=== PATIENT | female | born 1950 | race Caucasian/White ===

== ENCOUNTER 2016-12-25 15:20 | Inpatient (IN) | payer MEDICARE ==
[2016-12-25] MEDS ORDERED: ONDANSETRON HCL INJ/PF 4 MG/2 ML SDV IV ONE (15:53)
[2016-12-25] MEDS ORDERED: FAMOTIDINE INJ/PF 20 MG/2 ML SDV IV ONE (15:53)
[2016-12-25] MEDS ORDERED: NORMAL SALINE 1000 ML 1,000 ML IV PRN (15:53)
--- NOTE | 2016-12-25 15:54 | ER Document Report ---
ED Medical Screen (RME) - General Chief Complaint: High Blood Sugar Stated Complaint: DIABETES PROBLEMS Time Seen by Provider: 12/25/16 15:52 Mode of Arrival: Wheelchair Information source: Patient, Relative TRAVEL OUTSIDE OF THE [place] IN LAST 30 DAYS: No - HPI Patient complains to provider of: Nausea and vomiting, elevated blood sugars Notes: 12/25/16 15:54 Patient is a 66-year-old female with a history of diabetes who presents to the emergency room today complaining of nausea vomiting and diarrhea 2 days, she went to urgent care today and they noted her blood sugar to be elevated and also she had ketones in her urine so they sent her to the emergency department for evaluation - Related Data Allergies/Adverse Reactions: codeine Allergy (Verified 12/25/16 15:44) Past Medical History Renal/ Medical History: Denies: Hx Peritoneal Dialysis Physical Exam - Vital signs Vitals: Temp Pulse Resp BP Pulse Ox 98.9 F 100 18 157/86 H 93 12/25/16 15:40 12/25/16 15:40 12/25/16 15:40 12/25/16 15:40 12/25/16 15:40 Course - Vital Signs Vital signs: Temp Pulse Resp BP Pulse Ox 98.9 F 100 18 157/86 H 93 12/25/16 15:40 12/25/16 15:40 12/25/16 15:40 12/25/16 15:40 12/25/16 15:40
[2016-12-25 16:47] LABS: APPEARANCE,URINE CLOUDY; BILIRUBIN,URINE NEGATIVE (NEGATIVE); GLUCOSE, URINE NEGATIVE (NEGATIVE); KETONES,URINE NEGATIVE (NEGATIVE); LEUKOCYTE ESTERASE,URINE TRACE (NEGATIVE); NITRITE,URINE NEGATIVE (NEGATIVE); PROTEIN,URINE 100 mg/dL (NEGATIVE); URINE SPECIFIC GRAVITY 1.015
[2016-12-25 17:30] LABS: ABSOLUTE BASOPHILS # (AUTO) 0.1 10^3/uL (0.0-0.2); ABSOLUTE LYMPHOCYTES (AUTO) 1.3 10^3/uL (0.5-4.7); ABSOLUTE MONOCYTES (AUTO) 1.2 10^3/uL (0.1-1.4); ABSOLUTE NEUT (AUTO) 10.6 10^3/uL (1.7-8.2); BASOPHILS % (AUTO) 0.8 % (0-2); EOSINOPHILS % (AUTO) 0.1 % (0-6); HEMATOCRIT 38.5 % (36.0-47.0); HEMOGLOBIN 13.7 g/dL (12.0-15.5); HGB HCT DIFFERENCE 2.6; LYMPHOCYTES % (AUTO) 9.9 % (13-45); MEAN CORPUSCULAR HEMOGLOBIN 26.8 pg (27.0-33.4); MEAN CORPUSCULAR HGB CONC 35.6 g/dL (32.0-36.0); MEAN CORPUSCULAR VOLUME 75 fl (80-97); MONOCYTES % (AUTO) 9.3 % (3-13); RED BLOOD COUNT 5.12 10^6/uL (3.72-5.28); RED CELL DISTRIBUTION WIDTH 15.9 % (11.5-14.0); SEGMENTED NEUTROPHILS % (AUTO) 79.9 % (42-78); WHITE BLOOD COUNT 13.3 10^3/uL (4.0-10.5)
[2016-12-25 17:54] LABS: VENOUS BLOOD BASE EXCESS 1.2 mmol/L; VENOUS BLOOD HCO3 23.9 mmol/L (20-32); VENOUS BLOOD PCO2 32.4 mmHg (35-63); VENOUS BLOOD PH 7.49 (7.30-7.42)
[2016-12-25 17:56] LABS: ALANINE AMINOTRANSFERASE 51 U/L (9-52); ALBUMIN 4.6 g/dL (3.5-5.0); ALKALINE PHOSPHATASE 82 U/L (38-126); ANION GAP 18 (5-19); ASPARTATE AMINO TRANSFERASE 90 U/L (14-36); BILIRUBIN,DIRECT 0.3 mg/dL (0.0-0.4); BLOOD UREA NITROGEN 11 mg/dL (7-20); CALCIUM 9.6 mg/dL (8.4-10.2); CARBON DIOXIDE 21 mmol/L (22-30); CHLORIDE 80 mmol/L (98-107); CREATININE RESULT 0.55 mg/dL (0.52-1.25); GLUCOSE 124 mg/dL (75-110); LIPASE 21.3 U/L (23-300); TOTAL PROTEIN 7.4 g/dL (6.3-8.2)
[2016-12-25 18:04] LABS: SODIUM 118.7 mmol/L (137-145)
[2016-12-25] MEDS ORDERED: CEFTRIAXONE 1 GM/D5W RTU 1 GM/50 ML RTUPB IV ONE (18:23)
[2016-12-25] MEDS ORDERED: NORMAL SALINE 1000 ML 1,000 ML IV ONE (18:23)
--- NOTE | 2016-12-25 19:03 | ER Document Report ---
ED General - General Chief Complaint: High Blood Sugar Stated Complaint: DIABETES PROBLEMS Time Seen by Provider: 12/25/16 15:52 Mode of Arrival: Wheelchair Notes: Patient is a 66-year-old female with a past medical history of insulin- dependent type 2 diabetes, hypertension, who presents with 2 days of persistent nausea and vomiting as well as generalized fatigue. The patient is visiting from out of town. Nothing seems to improve or worsen her symptoms. She notes that she has been completely unable to tolerate oral intake for the past 48 hours. She has no history of similar symptoms in the past. She was seen at an urgent care today due to her ongoing symptoms and they referred her to the emergency department for further evaluation due to concerns of ketones in her urine. She denies any focal abdominal pain but does note some mild bilateral flank pain. She does note mild dysuria. She has not had any fever, chest pain , shortness of breath, headache, or altered mental status. TRAVEL OUTSIDE OF THE [place] IN LAST 30 DAYS: No - Related Data Allergies/Adverse Reactions: codeine Allergy (Verified 12/25/16 15:44) Home Medications: Current Home Medications Aspirin [Aspirin EC] 81 mg PO DAILY 12/26/16 [History] Cholecalciferol (Vitamin D3) [Vitamin D3 2000 unit Tablet] 2,000 unit PO DAILY 12/26/16 [History] Clonidine HCl 0.1 mg PO TID 12/26/16 [History] Cranberry Fruit Extract [Cranberry] 300 mg PO TID 12/26/16 [History] Cyanocobalamin (Vitamin B-12) [B-12] 1,000 mcg PO DAILY 12/26/16 [History] Escitalopram Oxalate [Lexapro 10 mg Tablet] 10 mg PO DAILY 12/26/16 [History] Insulin Glargine,Hum.rec.anlog [Lantus Insulin 100 Unit/1 ml 10 ml] 25 units [id number] 12/26/16 [History] Metformin HCl [Glucophage] 1,000 mg PO BID 12/26/16 [History] Naproxen Sodium 220 mg PO PRN PRN 12/26/16 [History] Omeprazole [Omeprazole] 20 mg DAILY 12/26/16 [History] Pregabalin [Lyrica 100 mg Capsule] 100 mg PO BID 12/26/16 [History] Ramipril [Altace 10 mg Capsule] mg PO BID 12/26/16 [History] Rosuvastatin Calcium [Crestor 10 mg Tablet] 10 mg PO WSUPPER 12/26/16 [History] Verapamil HCl 80 mg PO TID 12/26/16 [History] Zinc Gluconate [Zinc] 50 mg PO DAILY 12/26/16 [History] Past Medical History - General Information source: Patient, Relative - Social History Smoking Status: Never Smoker Chew tobacco use (# tins/day): No Frequency of alcohol use: None Drug Abuse: None Lives with: Family Family History: Reviewed & Not Pertinent Patient has suicidal ideation: No Patient has homicidal ideation: No - Past Medical History Cardiac Medical History: Reports: Hx Hypertension Neurological Medical History: Reports: Hx Seizures Endocrine Medical History: Reports: Hx Diabetes Mellitus Type 2 Renal/ Medical History: Denies: Hx Peritoneal Dialysis Past Surgical History: Reports: Hx Cholecystectomy, Hx Hysterectomy Review of Systems - Review of Systems Notes: Constitutional: Negative for fever. HENT: Negative for sore throat. Eyes: Negative for visual changes. Cardiovascular: Negative for chest pain. Respiratory: Negative for shortness of breath. Gastrointestinal: Positive for persistent vomiting Genitourinary: Positive for dysuria. Musculoskeletal: Negative for back pain. Skin: Negative for rash. Neurological: Negative for headaches, weakness or numbness. 10 point ROS negative except as marked above and in HPI. Physical Exam - Vital signs Vitals: Temp Pulse Resp BP Pulse Ox 98.9 F 100 18 157/86 H 93 12/25/16 15:40 12/25/16 15:40 12/25/16 15:40 12/25/16 15:40 12/25/16 15:40 Interpretation: Hypertensive, Tachycardic Notes: PHYSICAL EXAMINATION: GENERAL: Appears somewhat lethargic, uncomfortable but no acute distress HEAD: Atraumatic, normocephalic. EYES: Pupils equal round and reactive to light, extraocular movements intact, sclera anicteric, conjunctiva are normal. ENT: nares patent, oropharynx clear without exudates. Dry mucous membranes. NECK: Normal range of motion, supple without lymphadenopathy LUNGS: Breath sounds clear to auscultation bilaterally and equal. No wheezes rales or rhonchi. HEART: Regular tachycardia without murmurs ABDOMEN: Soft, nontender, normoactive bowel sounds. No guarding, no rebound. No masses appreciated. Mild bilateral CVA tenderness worse in the left EXTREMITIES: Normal range of motion, no pitting or edema. No cyanosis. NEUROLOGICAL: No focal neurological deficits. Moves all extremities spontaneously and on command. PSYCH: Normal mood, normal affect. SKIN: Warm, Dry, poor turgor, no rashes or lesions noted. Course - Re-evaluation Re-evalutation: 12/25/16 19:02 Patient presents with severe hyponatremia at 118 likely secondary to persistent vomiting as she is also hypochloremic and her urine is concentrated. Urinalysis also demonstrates findings consistent with an acute urinary tract infection which I suspect is the source of her persistent vomiting over the last 3 days. Given the degree of patient's hyponatremia she is at risk for seizures and has been placed on seizure precautions. The remainder of her laboratories are overall unremarkable with exception of a mild leukocytosis at 13. Urine culture and blood cultures have been obtained. Patient did originally received 1 L of IV fluids prior to my assessment. I do not wish to overcorrect too quickly so patient has now been placed on only maintenance fluids. I started ceftriaxone for treatment of the urinary tract infection. On lung examination patient is somewhat diminished at the bases bilaterally and is noted to be mildly hypoxemic at 93% on presentation. Will therefore also obtain a chest x-ray. Patient will require admission to the hospital for correction of her hyponatremia, treatment of her urinary tract infection with associated sepsis. 12/25/16 19:56 I have discussed this case with Dr. Steel who has accepted the patient for admission. - Vital Signs Vital signs: Temp Pulse Resp BP Pulse Ox 97.6 F 87 18 169/71 H 96 12/26/16 01:22 12/26/16 01:22 12/26/16 01:22 12/26/16 01:22 12/26/16 01:22 - Laboratory Result Diagrams: 12/25/16 17:10 12/26/16 00:55 Laboratory results interpreted by me: 12/25/16 12/25/16 12/25/16 15:52 16:07 16:07 WBC MCV MCH RDW Seg Neutrophils % Lymphocytes % Absolute Neutrophils VBG pH VBG pCO2 Sodium Chloride Carbon Dioxide Glucose POC Glucose 135 H Magnesium AST Lipase Urine Protein 100 H Urine Blood MODERATE H Urine Urobilinogen 2.0 H Ur Leukocyte Esterase TRACE H Urine Sodium 123 H 12/25/16 12/25/16 12/25/16 17:10 17:10 17:10 WBC 13.3 H MCV 75 L MCH 26.8 L RDW 15.9 H Seg Neutrophils % 79.9 H Lymphocytes % 9.9 L Absolute Neutrophils 10.6 H VBG pH 7.49 H VBG pCO2 32.4 L Sodium 118.7 L* Chloride 80 L Carbon Dioxide 21 L Glucose 124 H POC Glucose Magnesium AST 90 H Lipase 21.3 L Urine Protein Urine Blood Urine Urobilinogen Ur Leukocyte Esterase Urine Sodium 12/25/16 17:10 WBC MCV MCH RDW Seg Neutrophils % Lymphocytes % Absolute Neutrophils VBG pH VBG pCO2 Sodium Chloride Carbon Dioxide Glucose POC Glucose Magnesium 0.9 L* AST Lipase Urine Protein Urine Blood Urine Urobilinogen Ur Leukocyte Esterase Urine Sodium - Diagnostic Test Radiology reviewed: Image reviewed, Reports reviewed Radiology results interpreted by me: 12/25/16 19:57 Chest x-ray: No acute infiltrate or pneumothorax Discharge - Discharge Clinical Impression: Pyelonephritis, Hyponatremia, Persistent vomiting Sepsis Qualifiers: Sepsis type: sepsis due to unspecified organism Qualified Code(s): A41.9 - Sepsis, unspecified organism Condition: Fair Disposition: ADMITTED INPATIENT Admitting Provider: [facility] Admitted: [facility]
--- NOTE | 2016-12-25 19:38 | RADIOLOGY REPORT (SQ) ---
EXAM DESCRIPTION: CHEST SINGLE VIEW COMPLETED DATE/TIME: 12/25/2016 7:28 pm REASON FOR STUDY: sepsis COMPARISON: None. EXAM PARAMETERS: NUMBER OF VIEWS: One view. TECHNIQUE: Single frontal radiographic view of the chest acquired. RADIATION DOSE: NA LIMITATIONS: None. FINDINGS: LUNGS AND PLEURA: No opacities, masses or pneumothorax. No pleural effusion. MEDIASTINUM AND HILAR STRUCTURES: No masses. Contour normal. HEART AND VASCULAR STRUCTURES: Heart normal in size. Normal vasculature. BONES: No acute findings. HARDWARE: None in the chest. OTHER: No other significant finding. IMPRESSION: NO ACUTE RADIOGRAPHIC FINDING IN THE CHEST. TECHNICAL DOCUMENTATION: JOB ID: [id number]
[2016-12-25] MEDS ORDERED: ONDANSETRON HCL INJ/PF 4 MG/2 ML SDV IV PRN (19:46)
[2016-12-25] MEDS ORDERED: DEXTROSE 50%-WATER 25 GM/50 ML DISP.SYRIN IV PRN ×2 (19:46)
[2016-12-25] MEDS ORDERED: GLUCAGON,HUMAN RECOMB 1 MG INJ IM PRN (19:46)
[2016-12-25] MEDS ORDERED: DEXTROSE 40% GEL 15 GM TUBE PO PRN ×2 (19:46)
[2016-12-25] MEDS ORDERED: NORMAL SALINE 1000 ML 1,000 ML IV SCH (20:00)
[2016-12-25 20:50] LABS: BLOOD UREA NITROGEN 9 mg/dL (7-20); CALCIUM 8.7 mg/dL (8.4-10.2); CARBON DIOXIDE 21 mmol/L (22-30); CHLORIDE 82 mmol/L (98-107); CREATININE RESULT 0.46 mg/dL (0.52-1.25); GLUCOSE 102 mg/dL (75-110); POTASSIUM 3.5 mmol/L (3.6-5.0)
[2016-12-25 20:52] LABS: ANION GAP 15 (5-19)
[2016-12-25] MEDS ORDERED: MAGNESIUM SULFATE/D5W 1 GM/100 ML RTUPB IV ONE (20:53)
[2016-12-25 21:05] LABS: CREATINE KINASE 2380 U/L (30-135)
[2016-12-25 21:08] LABS: SODIUM 117.5 mmol/L (137-145)
[2016-12-25 21:10] LABS: TROPONIN I < 0.012 ng/mL
[2016-12-25] MEDS ORDERED: FUROSEMIDE INJ/PF 40 MG/4 ML SDV IV ONE (22:30)
[2016-12-25] MEDS: MAGNESIUM SULFATE/D5W 1 GM/100 ML RTUPB IV SCH ×3 (22:57→23:07)
[2016-12-25] MEDS: HEPARIN SOD (PORCINE) 5,000 UNIT/ML 1 ML SYRINGE SUBCUT SCH (23:04)
[2016-12-26 02:00] LABS: ANION GAP 18 (5-19); BLOOD UREA NITROGEN 8 mg/dL (7-20); CALCIUM 8.9 mg/dL (8.4-10.2); CARBON DIOXIDE 21 mmol/L (22-30); CHLORIDE 80 mmol/L (98-107); CREATININE RESULT 0.53 mg/dL (0.52-1.25); GLUCOSE 137 mg/dL (75-110); POTASSIUM 3.5 mmol/L (3.6-5.0)
[2016-12-26 02:10] LABS: CREATINE KINASE 2690 U/L (30-135)
[2016-12-26 02:17] LABS: TROPONIN I < 0.012 ng/mL
[2016-12-26 03:04] LABS: SODIUM 118.8 mmol/L (137-145)
[2016-12-26 04:56] LABS: ABSOLUTE BASOPHILS # (AUTO) 0.1 10^3/uL (0.0-0.2); ABSOLUTE LYMPHOCYTES (AUTO) 1.4 10^3/uL (0.5-4.7); ABSOLUTE MONOCYTES (AUTO) 1.3 10^3/uL (0.1-1.4); ABSOLUTE NEUT (AUTO) 8.9 10^3/uL (1.7-8.2); EOSINOPHILS % (AUTO) 0.2 % (0-6); HEMATOCRIT 37.6 % (36.0-47.0); HEMOGLOBIN 13.5 g/dL (12.0-15.5); HGB HCT DIFFERENCE 2.9; LYMPHOCYTES % (AUTO) 11.8 % (13-45); MEAN CORPUSCULAR HEMOGLOBIN 26.8 pg (27.0-33.4); MEAN CORPUSCULAR HGB CONC 35.8 g/dL (32.0-36.0); MEAN CORPUSCULAR VOLUME 75 fl (80-97); MONOCYTES % (AUTO) 11.2 % (3-13); RED BLOOD COUNT 5.02 10^6/uL (3.72-5.28); RED CELL DISTRIBUTION WIDTH 15.8 % (11.5-14.0); SEGMENTED NEUTROPHILS % (AUTO) 75.8 % (42-78); WHITE BLOOD COUNT 11.7 10^3/uL (4.0-10.5)
[2016-12-26 05:26] LABS: ANION GAP 17 (5-19); BLOOD UREA NITROGEN 8 mg/dL (7-20); CALCIUM 8.8 mg/dL (8.4-10.2); CARBON DIOXIDE 21 mmol/L (22-30); CHLORIDE 80 mmol/L (98-107); CREATININE RESULT 0.51 mg/dL (0.52-1.25); GLUCOSE 122 mg/dL (75-110); POTASSIUM 3.2 mmol/L (3.6-5.0)
[2016-12-26 05:38] LABS: SODIUM 117.7 mmol/L (137-145)
[2016-12-26] MEDS: HEPARIN SOD (PORCINE) 5,000 UNIT/ML 1 ML SYRINGE SUBCUT SCH ×3 (05:50→21:18)
[2016-12-26] MEDS ORDERED: FUROSEMIDE INJ/PF 40 MG/4 ML SDV IV ONE (06:15)
[2016-12-26] MEDS: ACETAMINOPHEN 325 MG TABLET PO PRN (06:38)
[2016-12-26] MEDS ORDERED: SODIUM CHLORIDE 1 GM TABLET PO ONE ×2 (06:49→09:30)
--- NOTE | 2016-12-26 07:46 | PDOC H&P ---
History of Present Illness Admission Date/PCP: 12/25/16 20:04 Patient complains of: Nausea and vomiting History of Present Illness: JYOTHI SUTHERLAND is a 66 year old female with a past medical history of diabetes and Charcot foot, hypertension and morbid obesity. Patient been her usual state of health until 3 days ago noted nausea and vomiting of gastric content, polyuria and polydipsia. Patient sought evaluation in urgent care and was noted to have ketones in the urine and is referred to the emergency room for evaluation. Where she is found to have profound hyponatremia and a urinary tract infection. She started on empiric antibiotics, IV fluids and referred to the hospitalist for admission. Patient denies chest pain or shortness of breath she admits to constant thirst and is driven to drink water all day long according to family members. Patient denies uncontrolled hyperglycemia or recent change in medications. Past Medical History Cardiac Medical History: Reports: Hypertension Neurological Medical History: Reports: Seizures Endocrine Medical History: Reports: Diabetes Mellitus Type 2, Obesity Musculoskeltal Medical History: Reports: Other - Charcot foot with ulcer Psychiatric Medical History: Reports: Depression Past Surgical History Past Surgical History: Reports: Cholecystectomy, Hysterectomy Social History Information Source: Patient, Relative, Emergency Med Personnel Lives with: Family Smoking Status: Never Smoker Frequency of Alcohol Use: None Hx Recreational Drug Use: No Drugs: None Hx Prescription Drug Abuse: No - Advance Directive Resuscitation Status: Full Code Family History Family History: DM, Hypertension Parental Family History Reviewed: Yes Children Family History Reviewed: Yes Sibling(s) Family History Reviewed.: Yes Medication/Allergy Home Medications: Aspirin [Aspirin EC] 81 mg PO DAILY 12/26/16 Cholecalciferol (Vitamin D3) [Vitamin D3 2000 unit Tablet] 2,000 unit PO DAILY 12/26/16 Clonidine HCl 0.1 mg PO TID 12/26/16 Cranberry Fruit Extract [Cranberry] 300 mg PO TID 12/26/16 Cyanocobalamin (Vitamin B-12) [B-12] 1,000 mcg PO DAILY 12/26/16 Escitalopram Oxalate [Lexapro 10 mg Tablet] 10 mg PO DAILY 12/26/16 Insulin Glargine,Hum.rec.anlog [Lantus Insulin 100 Unit/1 ml 10 ml] 25 units [id number] 12/26/16 Metformin HCl [Glucophage] 1,000 mg PO BID 12/26/16 Naproxen Sodium 220 mg PO PRN PRN 12/26/16 Omeprazole [Omeprazole] 20 mg DAILY 12/26/16 Pregabalin [Lyrica 100 mg Capsule] 100 mg PO BID 12/26/16 Ramipril [Altace 10 mg Capsule] 10 mg PO BID 12/26/16 Rosuvastatin Calcium [Crestor 10 mg Tablet] 10 mg PO WSUPPER 12/26/16 Verapamil HCl 80 mg PO TID 12/26/16 Zinc Gluconate [Zinc] 50 mg PO DAILY 12/26/16 Allergies/Adverse Reactions: codeine Allergy (Verified 12/25/16 15:44) Review of Systems Constitutional: PRESENT: as per HPI, fatigue, weakness, weight gain. ABSENT: fever(s) Eyes: ABSENT: visual disturbances Ears: ABSENT: hearing changes Cardiovascular: ABSENT: chest pain, dyspnea on exertion, edema, orthropnea, palpitations Respiratory: ABSENT: cough, hemoptysis Gastrointestinal: PRESENT: as per HPI, bloating, nausea, vomiting. ABSENT: coffee ground emesis, constipation, diarrhea Genitourinary: PRESENT: as per HPI, difficulty urinating Musculoskeletal: ABSENT: joint swelling Integumentary: ABSENT: rash, wounds Neurological: ABSENT: abnormal gait, abnormal speech, confusion, dizziness, focal weakness, syncope Psychiatric: ABSENT: anxiety, depression, homidical ideation, suicidal ideation Endocrine: ABSENT: cold intolerance, heat intolerance, polydipsia, polyuria Hematologic/Lymphatic: ABSENT: easy bleeding, easy bruising Physical Exam Vital Signs: Temp Pulse Resp BP Pulse Ox 97.7 F 84 17 156/74 H 93 12/26/16 03:00 12/26/16 03:00 12/26/16 03:00 12/26/16 03:00 12/26/16 03:00 Intake & Output 12/24/16 12/25/16 12/26/16 11:59 11:59 11:59 Intake Total 100 Output Total 1700 Balance -1600 Weight 105.3 kg General appearance: PRESENT: no acute distress, well-developed, well-nourished Head exam: PRESENT: atraumatic, normocephalic Eye exam: PRESENT: conjunctiva pink, EOMI, PERRLA. ABSENT: scleral icterus Ear exam: PRESENT: normal external ear exam Mouth exam: PRESENT: moist, tongue midline Neck exam: ABSENT: carotid bruit, JVD, lymphadenopathy, thyromegaly Respiratory exam: PRESENT: clear to auscultation grace. ABSENT: rales, rhonchi, wheezes Cardiovascular exam: PRESENT: RRR. ABSENT: diastolic murmur, rubs, systolic murmur Pulses: PRESENT: normal dorsalis pedis pul Vascular exam: PRESENT: normal capillary refill GI/Abdominal exam: PRESENT: normal bowel sounds, soft. ABSENT: distended, guarding, mass, organolmegaly, rebound, tenderness Rectal exam: PRESENT: deferred Extremities exam: PRESENT: full ROM. ABSENT: calf tenderness, clubbing, pedal edema Neurological exam: PRESENT: alert, awake, oriented to person, oriented to place , oriented to time, oriented to situation, CN II-XII grossly intact. ABSENT: motor sensory deficit Psychiatric exam: PRESENT: appropriate affect, normal mood. ABSENT: homicidal ideation, suicidal ideation Skin exam: PRESENT: dry, intact, warm. ABSENT: cyanosis, rash Results Laboratory Results: 12/26/16 04:40 12/26/16 04:40 12/25/16 12/25/16 12/26/16 20:22 20:22 00:55 WBC RBC Hgb Hct MCV MCH MCHC RDW Plt Count Seg Neutrophils % Lymphocytes % Monocytes % Eosinophils % Basophils % Absolute Neutrophils Absolute Lymphocytes Absolute Monocytes Absolute Eosinophils Absolute Basophils Sodium 117.5 L* 118.8 L* Potassium 3.5 L 3.5 L Chloride 82 L 80 L Carbon Dioxide 21 L 21 L Anion Gap 15 18 BUN 9 8 Creatinine 0.46 L 0.53 Est GFR ( Amer) > 60 > 60 Est GFR (Non-Af Amer) > 60 > 60 Glucose 102 137 H Serum Osmolality 239 L Calcium 8.7 8.9 Magnesium 12/26/16 12/26/16 12/26/16 04:40 04:40 04:40 WBC 11.7 H RBC 5.02 Hgb 13.5 Hct 37.6 MCV 75 L MCH 26.8 L MCHC 35.8 RDW 15.8 H Plt Count 399 Seg Neutrophils % 75.8 Lymphocytes % 11.8 L Monocytes % 11.2 Eosinophils % 0.2 Basophils % 1.0 Absolute Neutrophils 8.9 H Absolute Lymphocytes 1.4 Absolute Monocytes 1.3 Absolute Eosinophils 0.0 Absolute Basophils 0.1 Sodium 117.7 L* Potassium 3.2 L Chloride 80 L Carbon Dioxide 21 L Anion Gap 17 BUN 8 Creatinine 0.51 L Est GFR ( Amer) > 60 Est GFR (Non-Af Amer) > 60 Glucose 122 H Serum Osmolality Calcium 8.8 Magnesium 1.7 12/25/16 12/25/16 12/26/16 20:22 20:22 00:55 Creatine Kinase 2380 H 2690 H CK-MB (CK-2) 21.00 H Troponin I < 0.012 NT-Pro-B Natriuret Pep 12/26/16 12/26/16 12/26/16 00:55 00:55 00:55 Creatine Kinase Cancelled CK-MB (CK-2) 18.90 H Troponin I < 0.012 NT-Pro-B Natriuret Pep 197 Impressions: Chest X-Ray 12/25/16 19:01 IMPRESSION: NO ACUTE RADIOGRAPHIC FINDING IN THE CHEST. Assessment & Plan - Diagnosis (1) Hyponatremia Is this a current diagnosis for this admission?: Yes Plan: Hypotonic and hypervolemic likely multifactorial secondary to primary polydipsia , NSAIDs, PPI and SSRI. IMCU admission chemistry q. 4 hours, fluid restriction IV Lasix as needed. Education (2) Urinary tract infection Is this a current diagnosis for this admission?: Yes Plan: Empiric antibiotics follow-up CBC, blood and urine culture (3) Hypomagnesemia Is this a current diagnosis for this admission?: Yes Plan: Unclear cause repletion and reevaluation of chemistry (4) Rhabdomyolysis Is this a current diagnosis for this admission?: Yes Plan: Secondary to hyponatremia, consider bicarb, reevaluate total CK to verify improvement - Time Time Spent: 50 to 70 Minutes
[2016-12-26] MEDS: POTASSI CL 20 MEQ/50 ML RIDER 20 MEQ/50 ML RTUPB IV SCH ×4 (08:00→23:11)
[2016-12-26 08:41] LABS: ANION GAP 19 (5-19); BLOOD UREA NITROGEN 8 mg/dL (7-20); CALCIUM 9.2 mg/dL (8.4-10.2); CARBON DIOXIDE 22 mmol/L (22-30); CHLORIDE 78 mmol/L (98-107); CREATINE KINASE 1528 U/L (30-135); CREATININE RESULT 0.59 mg/dL (0.52-1.25); GLUCOSE 121 mg/dL (75-110); POTASSIUM 3.1 mmol/L (3.6-5.0)
[2016-12-26 08:50] LABS: SODIUM 119.3 mmol/L (137-145)
[2016-12-26 09:02] LABS: TROPONIN I < 0.012 ng/mL
--- NOTE | 2016-12-26 09:40 | EKG REPORT ---
SEVERITY:- NORMAL ECG - SINUS RHYTHM : Confirmed by: Cherise Medina 26-Dec-2016 09:39:11
[2016-12-26] MEDS: DOCUSATE SODIUM 100 MG CAPSULE PO SCH (09:49)
[2016-12-26] MEDS: ASPIRIN 81 MG TABLET, ENT COATED PO SCH (09:49)
[2016-12-26] MEDS: CEFTRIAXONE 1 GM/D5W RTU 1 GM/50 ML RTUPB IV SCH (09:50)
[2016-12-26] MEDS ORDERED: VERAPAMIL HCL 80 MG TABLET PO SCH (10:00)
[2016-12-26] MEDS ORDERED: RAMIPRIL 10 MG CAPSULE PO SCH (10:00)
[2016-12-26] MEDS ORDERED: PREGABALIN 100 MG CAPSULE PO SCH (10:00)
[2016-12-26] MEDS ORDERED: CLONIDINE HCL 0.1 MG TABLET PO SCH (10:00)
[2016-12-26] MEDS ORDERED: CALCIUM CARBONATE 500 MG TAB.CHEW PO ONE (11:00)
[2016-12-26] MEDS: CLONIDINE HCL 0.1 MG TABLET PO SCH ×2 (14:00→21:26)
[2016-12-26] MEDS: MAG HYDROX/AL HYDROX/SIMETH SUSP 30 ML UDCUP PO PRN ×2 (14:01→22:47)
[2016-12-26] MEDS: VERAPAMIL HCL 80 MG TABLET PO SCH ×2 (14:01→21:29)
[2016-12-26 14:10] LABS: ANION GAP 16 (5-19); BLOOD UREA NITROGEN 8 mg/dL (7-20); CALCIUM 9.2 mg/dL (8.4-10.2); CARBON DIOXIDE 22 mmol/L (22-30); CHLORIDE 81 mmol/L (98-107); CREATININE RESULT 0.56 mg/dL (0.52-1.25); GLUCOSE 142 mg/dL (75-110); MAGNESIUM 1.5 mg/dL (1.6-2.3); POTASSIUM 3.3 mmol/L (3.6-5.0)
[2016-12-26 14:14] LABS: SODIUM 119.4 mmol/L (137-145)
--- NOTE | 2016-12-26 15:28 | PDOC PROGRESS REPORT ---
Subjective Progress Note for:: 12/26/16 Subjective:: Pt is seen resting in bed with family present. Pt reports diffuse abdominal pain, described as "aching" that does not radiate, and most localized to the suprapubic area. She complains of dysuria. She denies flank pain, nausea, vomiting, urinary urgency and frequency. She does endorse feeling feverish, although an elevated temperature has not been documented. Pt's family members have numerous questions and concerns regarding specifics of lab values and plans to address her electrolytes. They do confirm that the patient is more fatigued and confused than per her baseline. All questions were answered and treatment plan was discussed in detail. Physical Exam Vital Signs: Temp Pulse Resp BP Pulse Ox 98.3 F 87 19 157/80 H 94 12/26/16 13:04 12/26/16 13:04 12/26/16 13:04 12/26/16 13:04 12/26/16 13:04 Intake & Output 12/25/16 12/26/16 12/27/16 06:59 06:59 06:59 Intake Total 800 118 Output Total 1700 Balance -900 118 Weight 105.3 kg General appearance: PRESENT: no acute distress, obese, well-developed, well- nourished Head exam: PRESENT: atraumatic, normocephalic Eye exam: PRESENT: conjunctiva pink, EOMI, PERRLA. ABSENT: scleral icterus Ear exam: PRESENT: normal external ear exam Mouth exam: PRESENT: moist, tongue midline Neck exam: ABSENT: carotid bruit, JVD, lymphadenopathy, thyromegaly Respiratory exam: PRESENT: clear to auscultation grace, symmetrical, unlabored. ABSENT: rales, rhonchi, wheezes Cardiovascular exam: PRESENT: RRR, +S1, +S2. ABSENT: diastolic murmur, rubs, systolic murmur Pulses: PRESENT: normal dorsalis pedis pul Vascular exam: PRESENT: normal capillary refill GI/Abdominal exam: PRESENT: normal bowel sounds, soft, tenderness - suprapubic tenderness w/ palpation. ABSENT: distended, guarding, mass, organolmegaly, rebound Rectal exam: PRESENT: deferred Extremities exam: PRESENT: full ROM. ABSENT: calf tenderness, clubbing, pedal edema Neurological exam: PRESENT: alert, awake, oriented to person, oriented to place , oriented to time, oriented to situation, CN II-XII grossly intact, other. ABSENT: motor sensory deficit Psychiatric exam: PRESENT: appropriate affect, normal mood. ABSENT: homicidal ideation, suicidal ideation Skin exam: PRESENT: dry, intact, warm. ABSENT: cyanosis, rash Results Laboratory Results: 12/26/16 04:40 12/26/16 13:22 12/25/16 12/25/16 12/26/16 20:22 20:22 00:55 WBC RBC Hgb Hct MCV MCH MCHC RDW Plt Count Seg Neutrophils % Lymphocytes % Monocytes % Eosinophils % Basophils % Absolute Neutrophils Absolute Lymphocytes Absolute Monocytes Absolute Eosinophils Absolute Basophils Sodium 117.5 L* 118.8 L* Potassium 3.5 L 3.5 L Chloride 82 L 80 L Carbon Dioxide 21 L 21 L Anion Gap 15 18 BUN 9 8 Creatinine 0.46 L 0.53 Est GFR ( Amer) > 60 > 60 Est GFR (Non-Af Amer) > 60 > 60 Glucose 102 137 H Serum Osmolality 239 L Calcium 8.7 8.9 Magnesium TSH 12/26/16 12/26/16 12/26/16 00:55 04:40 04:40 WBC 11.7 H RBC 5.02 Hgb 13.5 Hct 37.6 MCV 75 L MCH 26.8 L MCHC 35.8 RDW 15.8 H Plt Count 399 Seg Neutrophils % 75.8 Lymphocytes % 11.8 L Monocytes % 11.2 Eosinophils % 0.2 Basophils % 1.0 Absolute Neutrophils 8.9 H Absolute Lymphocytes 1.4 Absolute Monocytes 1.3 Absolute Eosinophils 0.0 Absolute Basophils 0.1 Sodium 117.7 L* Potassium 3.2 L Chloride 80 L Carbon Dioxide 21 L Anion Gap 17 BUN 8 Creatinine 0.51 L Est GFR ( Amer) > 60 Est GFR (Non-Af Amer) > 60 Glucose 122 H Serum Osmolality Calcium 8.8 Magnesium TSH 1.13 12/26/16 12/26/16 12/26/16 04:40 07:56 13:22 WBC RBC Hgb Hct MCV MCH MCHC RDW Plt Count Seg Neutrophils % Lymphocytes % Monocytes % Eosinophils % Basophils % Absolute Neutrophils Absolute Lymphocytes Absolute Monocytes Absolute Eosinophils Absolute Basophils Sodium 119.3 L* 119.4 L* Potassium 3.1 L 3.3 L Chloride 78 L 81 L Carbon Dioxide 22 22 Anion Gap 19 16 BUN 8 8 Creatinine 0.59 0.56 Est GFR ( Amer) > 60 > 60 Est GFR (Non-Af Amer) > 60 > 60 Glucose 121 H 142 H Serum Osmolality Calcium 9.2 9.2 Magnesium 1.7 1.5 L TSH 12/25/16 12/25/16 12/26/16 20:22 20:22 00:55 Creatine Kinase 2380 H 2690 H CK-MB (CK-2) 21.00 H Troponin I < 0.012 NT-Pro-B Natriuret Pep 12/26/16 12/26/16 12/26/16 00:55 00:55 00:55 Creatine Kinase Cancelled CK-MB (CK-2) 18.90 H Troponin I < 0.012 NT-Pro-B Natriuret Pep 197 12/26/16 12/26/16 07:56 07:56 Creatine Kinase 1528 H CK-MB (CK-2) 12.70 H Troponin I < 0.012 NT-Pro-B Natriuret Pep Impressions: Chest X-Ray 12/25/16 19:01 IMPRESSION: NO ACUTE RADIOGRAPHIC FINDING IN THE CHEST. Assessment & Plan - Diagnosis (1) Hyponatremia Is this a current diagnosis for this admission?: Yes Plan: Hypotonic and hypervolemic; likely multifactorial secondary to primary polydipsia, NSAIDs, PPI, and SSRI. Admitted to IMCU. 1- Seizure precautions 2- Fluid restricted to 1000 ml daily 3- Serial bmp (2) Hypomagnesemia Is this a current diagnosis for this admission?: Yes Plan: Replaced; will continue to monitor. (3) Rhabdomyolysis Is this a current diagnosis for this admission?: Yes Plan: Secondary to hyponatremia. Improving. Will continue to monitor. (4) Urinary tract infection Qualifiers: Urinary tract infection type: acute cystitis Hematuria presence: with hematuria Qualified Code(s): N30.01 - Acute cystitis with hematuria Is this a current diagnosis for this admission?: Yes Plan: Urine culture: Gram negative rods. Pt reports continued dysuria and suprapubic abdominal pain. 1- Continue Rocephin 2- Pyridium TID - Time Time Spent with patient: 35 or more minutes Medications reviewed and adjusted accordingly: Yes - Inpatient Certification Based on my medical assessment, after consideration of the patient's comorbidities, presenting symptoms, or acuity I expect that the services needed warrant INPATIENT care.: Yes I certify that my determination is in accordance with my understanding of Medicare's requirements for reasonable and necessary INPATIENT services [42 CFR 412.3e].: Yes Medical Necessity: Failure to Improve With Outpatient Therapy, Need Close Monitoring Due to Risk of Patient Decompensation, Need For IV Fluids, Need for IV Antibiotics
--- NOTE | 2016-12-26 15:38 | CONSULTATION REPORT E ---
Consultation Report NAME: JYOTHI SUTHERLAND : 1950 AGE: 66Y DATE: 12/26/2016 323 A TO: CARMELLA HOLLIS M.D. FROM: SEPIDEH GANDHI M.D. Requesting Physician REASON FOR CONSULTATION: Charcot feet with ulcers. HISTORY OF PRESENT ILLNESS: The patient is a 66-year-old white female new to this area originally from [place] who has a long history of polyarthropathy of the feet, Charcot feet, multiple previous operations on the feet but remarkably no toe amputations, history of foot orthotic on the left, and especially diabetic shoe on the right, who was admitted to the hospital for acute hyponatremia and hypervolemia and other electrolyte abnormalities. Surgery is consulted for evaluation and management of her feet. PAST MEDICAL AND SURGICAL HISTORY: All count be found in History and Physical document. REVIEW OF SYSTEMS: All count be found in History and Physical document. FAMILY HISTORY: All count be found in History and Physical document. PHYSICAL EXAMINATION: GENERAL: The patient is examined at [facility] 3rd floor. She is in no distress. EXTREMITIES: Exam focused on the lower extremities. She has palpable popliteal and dorsalis pedis pulses bilaterally. Both feet are mildly edematous but no acute erythema, foul smell, or open wounds. On the right side, all five toes are present. Several of the toe tips have some dry exfoliating skin but no acute wounds. These areas are at the tips of the toes. There is moderate deformity of the bone structure of the foot consistent with chronic subluxation and/or dislocation. Left foot worse than right in terms of arthropathy. Again, multiple toes with marked angulation and deformity but no acutely open wounds, cellulitis, etc. Several of the toe tips again have mild friction-like changes. LABORATORY PROFILE: Shows electrolyte abnormalities consistent with hyponatremia, hypokalemia. White blood cell count 11,700 with no significant left shift this morning. IMPRESSION: Chronic diabetic osteoarthropathy of the feet consistent with Charcot joints status post previous operations for toe and forefoot stabilization, all chronic; no evidence of acute ulcerations, wounds, infection, etc. RECOMMENDATIONS: 1. No indication for acute surgical intervention at this time. There is nothing to debride. 2. Suggest ongoing local wound care including leg elevation, protection of skin and pressure points; I have suggested using Allevyn dressings and an order has been written. 3. Patient has left foot custom-make orthotic and right diabetic shoe; once she is stable for ambulation, she can return to those support devices. 4. Reconsult surgery if needed. DICTATING PHYSICIAN: CARMELLA HOLLIS M.D. [id number] PHY#: [id number] ID: [id number] JOB#: [id number] ACCT: [id number] cc:CARMELLA HOLLIS M.D. >
[2016-12-26] MEDS ORDERED: MAGNESIUM SULFATE 4 GM/100 ML RTUPB IV ONE (16:00)
[2016-12-26 17:33] LABS: ANION GAP 14 (5-19); BLOOD UREA NITROGEN 9 mg/dL (7-20); CALCIUM 8.9 mg/dL (8.4-10.2); CARBON DIOXIDE 24 mmol/L (22-30); CHLORIDE 80 mmol/L (98-107); CREATININE RESULT 0.57 mg/dL (0.52-1.25); GLUCOSE 172 mg/dL (75-110); POTASSIUM 3.2 mmol/L (3.6-5.0)
[2016-12-26 17:41] LABS: SODIUM 118.4 mmol/L (137-145)
[2016-12-26 19:33] LABS: ANION GAP 16 (5-19); BLOOD UREA NITROGEN 9 mg/dL (7-20); CALCIUM 9.1 mg/dL (8.4-10.2); CARBON DIOXIDE 23 mmol/L (22-30); CHLORIDE 80 mmol/L (98-107); CREATININE RESULT 0.56 mg/dL (0.52-1.25); GLUCOSE 170 mg/dL (75-110); POTASSIUM 3.2 mmol/L (3.6-5.0)
[2016-12-26 19:47] LABS: MAGNESIUM 2.9 mg/dL (1.6-2.3)
[2016-12-26 19:49] LABS: SODIUM 119.3 mmol/L (137-145)
[2016-12-26] MEDS: PHENAZOPYRIDINE HCL 100 MG TABLET PO SCH (21:27)
[2016-12-26] MEDS: RAMIPRIL 10 MG CAPSULE PO SCH (21:28)
[2016-12-26] MEDS: PREGABALIN 100 MG CAPSULE PO SCH (21:28)
[2016-12-26 23:35] LABS: ANION GAP 14 (5-19); BLOOD UREA NITROGEN 8 mg/dL (7-20); CALCIUM 8.8 mg/dL (8.4-10.2); CARBON DIOXIDE 24 mmol/L (22-30); CHLORIDE 83 mmol/L (98-107); CREATININE RESULT 0.53 mg/dL (0.52-1.25); GLUCOSE 172 mg/dL (75-110); POTASSIUM 3.7 mmol/L (3.6-5.0); SODIUM 121.1 mmol/L (137-145)
[2016-12-27 03:44] LABS: BLOOD UREA NITROGEN 8 mg/dL (7-20); CALCIUM 8.6 mg/dL (8.4-10.2); CARBON DIOXIDE 26 mmol/L (22-30); CHLORIDE 85 mmol/L (98-107); CREATININE RESULT 0.52 mg/dL (0.52-1.25); GLUCOSE 160 mg/dL (75-110); POTASSIUM 3.6 mmol/L (3.6-5.0)
[2016-12-27 04:23] LABS: ANION GAP 12 (5-19); SODIUM 123.4 mmol/L (137-145)
[2016-12-27] MEDS: ACETAMINOPHEN 325 MG TABLET PO PRN ×2 (04:36→17:57)
[2016-12-27] MEDS: CLONIDINE HCL 0.1 MG TABLET PO SCH ×3 (06:17→21:52)
[2016-12-27] MEDS: PHENAZOPYRIDINE HCL 100 MG TABLET PO SCH ×3 (06:18→21:52)
[2016-12-27] MEDS: VERAPAMIL HCL 80 MG TABLET PO SCH ×3 (06:19→21:52)
[2016-12-27] MEDS: HEPARIN SOD (PORCINE) 5,000 UNIT/ML 1 ML SYRINGE SUBCUT SCH ×3 (06:19→21:51)
[2016-12-27 08:03] LABS: ANION GAP 15 (5-19); BLOOD UREA NITROGEN 8 mg/dL (7-20); CALCIUM 9.1 mg/dL (8.4-10.2); CARBON DIOXIDE 24 mmol/L (22-30); CHLORIDE 86 mmol/L (98-107); CREATINE KINASE 492 U/L (30-135); CREATININE RESULT 0.55 mg/dL (0.52-1.25); GLUCOSE 148 mg/dL (75-110); MAGNESIUM 2.1 mg/dL (1.6-2.3); POTASSIUM 3.7 mmol/L (3.6-5.0); SODIUM 125.4 mmol/L (137-145)
--- NOTE | 2016-12-27 08:38 | RADIOLOGY REPORT (SQ) ---
EXAM DESCRIPTION: HIP RIGHT AP/LATERAL COMPLETED DATE/TIME: 12/27/2016 8:25 am REASON FOR STUDY: pain s/p fall COMPARISON: None. NUMBER OF VIEWS: Two views. TECHNIQUE: AP and frog-leg view of the right hip. LIMITATIONS: None. FINDINGS: MINERALIZATION: Normal. RIGHT HIP: No fracture or dislocation. No worrisome bone lesions. OPPOSITE HIP: No fracture or dislocation. No worrisome bone lesions. SOFT TISSUES: No findings. OTHER: Arthritic changes lower lumbar spine If an occult fracture suspected clinically, consider followup imaging. IMPRESSION: No acute fracture identified of the right hip TECHNICAL DOCUMENTATION: JOB ID: [id number] [employer]- All Rights Reserved
[2016-12-27] MEDS: CEFTRIAXONE 1 GM/D5W RTU 1 GM/50 ML RTUPB IV SCH (11:00)
[2016-12-27] MEDS: ASPIRIN 81 MG TABLET, ENT COATED PO SCH (11:00)
[2016-12-27] MEDS: DOCUSATE SODIUM 100 MG CAPSULE PO SCH (11:01)
[2016-12-27] MEDS: PREGABALIN 100 MG CAPSULE PO SCH ×2 (11:02→21:51)
[2016-12-27] MEDS: RAMIPRIL 10 MG CAPSULE PO SCH ×2 (11:06→21:52)
--- NOTE | 2016-12-27 11:51 | PDOC PROGRESS REPORT ---
Subjective Progress Note for:: 12/27/16 Subjective:: Pt is seen resting in bed with family present. Pt reports continued diffuse abdominal pain, described as "aching" that does not radiate, and most localized to the suprapubic area. She does state the pain is improved from yesterday. She did develop urinary retention overnight and had a melton placed. Family members very concerned that this may be a reflection of kidney failure. All questions and concerns addressed and reassured. She denies flank pain, nausea, vomiting, urinary urgency and frequency. Pt's family members again have numerous questions and concerns regarding specifics of lab values and plans to address her electrolytes. They do confirm that the patient remains more confused than her baseline. All questions were answered and treatment plan was discussed in detail. Physical Exam Vital Signs: Temp Pulse Resp BP Pulse Ox 98.3 F 86 16 151/67 H 95 12/27/16 07:13 12/27/16 08:00 12/27/16 08:00 12/27/16 07:13 12/27/16 08:00 Intake & Output 12/26/16 12/27/16 12/28/16 06:59 06:59 06:59 Intake Total 800 1438 Output Total 1700 2000 Balance -900 -562 Weight 105.3 kg 110 kg General appearance: PRESENT: no acute distress, obese, well-developed, well- nourished Head exam: PRESENT: atraumatic, normocephalic Eye exam: PRESENT: conjunctiva pink, EOMI, PERRLA. ABSENT: scleral icterus Ear exam: PRESENT: normal external ear exam Mouth exam: PRESENT: moist, tongue midline Neck exam: ABSENT: carotid bruit, JVD, lymphadenopathy, thyromegaly Respiratory exam: PRESENT: clear to auscultation grace, symmetrical, unlabored. ABSENT: rales, rhonchi, tachypnea, wheezes Cardiovascular exam: PRESENT: RRR, +S1, +S2. ABSENT: diastolic murmur, rubs, systolic murmur Pulses: PRESENT: normal dorsalis pedis pul Vascular exam: PRESENT: normal capillary refill GI/Abdominal exam: PRESENT: normal bowel sounds, soft, tenderness - mild, diffuse suprapubic tenderness; not worsened with palpation. ABSENT: distended, guarding, mass, organolmegaly, rebound Rectal exam: PRESENT: deferred Extremities exam: PRESENT: full ROM. ABSENT: calf tenderness, clubbing, pedal edema Neurological exam: PRESENT: alert, awake, oriented to person, oriented to place , CN II-XII grossly intact, other - Slow mentation; pleasantly confused. ABSENT : oriented to time, oriented to situation, motor sensory deficit Psychiatric exam: PRESENT: appropriate affect, normal mood. ABSENT: homicidal ideation, suicidal ideation Skin exam: PRESENT: dry, intact, warm. ABSENT: cyanosis, rash Results Laboratory Results: 12/26/16 04:40 12/27/16 07:30 12/26/16 12/26/16 12/26/16 13:22 17:03 19:03 Sodium 119.4 L* 118.4 L* 119.3 L* Potassium 3.3 L 3.2 L 3.2 L Chloride 81 L 80 L 80 L Carbon Dioxide 22 24 23 Anion Gap 16 14 16 BUN 8 9 9 Creatinine 0.56 0.57 0.56 Est GFR ( Amer) > 60 > 60 > 60 Est GFR (Non-Af Amer) > 60 > 60 > 60 Glucose 142 H 172 H 170 H Calcium 9.2 8.9 9.1 Magnesium 1.5 L 2.9 H D 12/26/16 12/27/16 12/27/16 22:58 03:10 07:30 Sodium 121.1 L 123.4 L 125.4 L Potassium 3.7 3.6 3.7 Chloride 83 L 85 L 86 L Carbon Dioxide 24 26 24 Anion Gap 14 12 15 BUN 8 8 8 Creatinine 0.53 0.52 0.55 Est GFR ( Amer) > 60 > 60 > 60 Est GFR (Non-Af Amer) > 60 > 60 > 60 Glucose 172 H 160 H 148 H Calcium 8.8 8.6 9.1 Magnesium 2.1 12/25/16 12/25/16 12/26/16 20:22 20:22 00:55 Creatine Kinase 2380 H 2690 H CK-MB (CK-2) 21.00 H Troponin I < 0.012 NT-Pro-B Natriuret Pep 12/26/16 12/26/16 12/26/16 00:55 00:55 00:55 Creatine Kinase Cancelled CK-MB (CK-2) 18.90 H Troponin I < 0.012 NT-Pro-B Natriuret Pep 197 12/26/16 12/26/16 12/27/16 07:56 07:56 07:30 Creatine Kinase 1528 H 492 H CK-MB (CK-2) 12.70 H Troponin I < 0.012 NT-Pro-B Natriuret Pep Impressions: Chest X-Ray 12/25/16 19:01 IMPRESSION: NO ACUTE RADIOGRAPHIC FINDING IN THE CHEST. Hip/Pelvis X-Ray 12/27/16 00:00 IMPRESSION: No acute fracture identified of the right hip Assessment & Plan - Diagnosis (1) Hyponatremia Is this a current diagnosis for this admission?: Yes Plan: Hypotonic and hypervolemic; likely multifactorial secondary to primary polydipsia, NSAIDs, PPI, and SSRI. Admitted to IMCU. Sodium trending up. 1- Seizure precautions 2- Fluid restricted to 1000 ml daily 3- Serial bmp (2) Urinary tract infection Qualifiers: Urinary tract infection type: acute cystitis Hematuria presence: with hematuria Qualified Code(s): N30.01 - Acute cystitis with hematuria Is this a current diagnosis for this admission?: Yes Plan: Urine culture: E. coli, resistant to Trim/Sulfa only. Pt reports continued suprapubic abdominal pain; leukocytes trending down and pt is afebrile. 1- Continue Rocephin 2- Pyridium TID (3) Rhabdomyolysis Qualifiers: Rhabdomyolysis type: non-traumatic Qualified Code(s): M62.82 - Rhabdomyolysis Is this a current diagnosis for this admission?: Yes Plan: Secondary to hyponatremia. Improving. Will continue to monitor. (4) Hypomagnesemia Is this a current diagnosis for this admission?: Yes Plan: Replete; will continue to monitor. (5) Hypokalemia Is this a current diagnosis for this admission?: Yes Plan: Replete. - Time Time Spent with patient: 35 or more minutes Medications reviewed and adjusted accordingly: Yes - Inpatient Certification Based on my medical assessment, after consideration of the patient's comorbidities, presenting symptoms, or acuity I expect that the services needed warrant INPATIENT care.: Yes I certify that my determination is in accordance with my understanding of Medicare's requirements for reasonable and necessary INPATIENT services [42 CFR 412.3e].: Yes Medical Necessity: Failure to Improve With Outpatient Therapy
[2016-12-27 12:39] LABS: ANION GAP 14 (5-19); BLOOD UREA NITROGEN 8 mg/dL (7-20); CARBON DIOXIDE 26 mmol/L (22-30); CHLORIDE 86 mmol/L (98-107); CREATININE RESULT 0.61 mg/dL (0.52-1.25); GLUCOSE 157 mg/dL (75-110); POTASSIUM 3.5 mmol/L (3.6-5.0); SODIUM 125.5 mmol/L (137-145)
[2016-12-27] MEDS ORDERED: LIDOCAINE 5% (700 MG) TRANSDERMAL ADH..PATCH TP SCH (13:00)
[2016-12-27 16:31] LABS: ANION GAP 12 (5-19); BLOOD UREA NITROGEN 9 mg/dL (7-20); CALCIUM 9.4 mg/dL (8.4-10.2); CARBON DIOXIDE 25 mmol/L (22-30); CHLORIDE 87 mmol/L (98-107); CREATININE RESULT 0.54 mg/dL (0.52-1.25); GLUCOSE 218 mg/dL (75-110); POTASSIUM 3.4 mmol/L (3.6-5.0); SODIUM 123.8 mmol/L (137-145)
[2016-12-27] MEDS: INSULIN LISPRO 100 UNIT/ML 3 ML VIAL SUBCUT PRN ×2 (17:57→22:09)
[2016-12-27] MEDS: MAG HYDROX/AL HYDROX/SIMETH SUSP 30 ML UDCUP PO PRN (17:59)
[2016-12-27] MEDS ORDERED: LIDOCAINE 5% (700 MG) TRANSDERMAL ADH..PATCH TP ONE (18:00)
[2016-12-27 19:26] LABS: ANION GAP 11 (5-19); BLOOD UREA NITROGEN 10 mg/dL (7-20); CALCIUM 9.2 mg/dL (8.4-10.2); CARBON DIOXIDE 26 mmol/L (22-30); CHLORIDE 87 mmol/L (98-107); CREATININE RESULT 0.56 mg/dL (0.52-1.25); GLUCOSE 206 mg/dL (75-110); POTASSIUM 3.5 mmol/L (3.6-5.0); SODIUM 123.6 mmol/L (137-145)
[2016-12-27 23:18] LABS: ANION GAP 11 (5-19); BLOOD UREA NITROGEN 9 mg/dL (7-20); CALCIUM 9.3 mg/dL (8.4-10.2); CARBON DIOXIDE 26 mmol/L (22-30); CHLORIDE 88 mmol/L (98-107); CREATININE RESULT 0.54 mg/dL (0.52-1.25); GLUCOSE 169 mg/dL (75-110); POTASSIUM 3.6 mmol/L (3.6-5.0); SODIUM 125.2 mmol/L (137-145)
[2016-12-28] MEDS: CLONIDINE HCL 0.1 MG TABLET PO SCH ×3 (05:03→22:25)
[2016-12-28] MEDS: VERAPAMIL HCL 80 MG TABLET PO SCH ×3 (05:04→22:25)
[2016-12-28] MEDS: HEPARIN SOD (PORCINE) 5,000 UNIT/ML 1 ML SYRINGE SUBCUT SCH ×3 (05:05→22:25)
[2016-12-28] MEDS: PHENAZOPYRIDINE HCL 100 MG TABLET PO SCH ×3 (05:05→22:25)
[2016-12-28] MEDS: INSULIN LISPRO 100 UNIT/ML 3 ML VIAL SUBCUT PRN ×4 (08:06→22:36)
[2016-12-28] MEDS: ASPIRIN 81 MG TABLET, ENT COATED PO SCH (10:58)
[2016-12-28] MEDS: CEFTRIAXONE 1 GM/D5W RTU 1 GM/50 ML RTUPB IV SCH (10:58)
[2016-12-28] MEDS: POTASSIUM CHLORIDE 10 MEQ TABLET.SA PO SCH (10:58)
[2016-12-28] MEDS: DOCUSATE SODIUM 100 MG CAPSULE PO SCH (10:58)
[2016-12-28] MEDS: RAMIPRIL 10 MG CAPSULE PO SCH ×2 (10:59→22:25)
[2016-12-28] MEDS: PREGABALIN 100 MG CAPSULE PO SCH ×2 (10:59→22:25)
[2016-12-28 11:25] LABS: ANION GAP 13 (5-19); BLOOD UREA NITROGEN 11 mg/dL (7-20); CALCIUM 9.8 mg/dL (8.4-10.2); CARBON DIOXIDE 26 mmol/L (22-30); CHLORIDE 89 mmol/L (98-107); CREATININE RESULT 0.57 mg/dL (0.52-1.25); GLUCOSE 220 mg/dL (75-110); POTASSIUM 3.6 mmol/L (3.6-5.0); SODIUM 127.5 mmol/L (137-145)
[2016-12-28] MEDS: IPRATROPIUM/ALBUTEROL 0.5-2.5 MG/3 ML AMPUL NEB PRN ×2 (12:32→21:03)
[2016-12-28] MEDS ORDERED: LIDOCAINE 5% (700 MG) TRANSDERMAL ADH..PATCH TP SCH (13:00)
[2016-12-28] MEDS ORDERED: NAPROXEN SODIUM 220 MG PO PRN (14:01)
--- NOTE | 2016-12-28 14:31 | PDOC PROGRESS REPORT ---
Subjective Progress Note for:: 12/28/16 Subjective:: This is a follow-up visit for hyponatremia.. The patient states that she feels better but not quite herself. Her daughter and son-in-law are in the room and they have a list of questions that they have provided me. We did discuss at length the patient's ability to use Prilosec, insulin both short and long-acting , electrolytic normal ranges, solid food, liquid/fluid restriction, naproxen, and PT OT. Each of these questions was answered. Physical Exam Vital Signs: Temp Pulse Resp BP Pulse Ox 98.0 F 71 20 142/68 H 93 12/28/16 11:35 12/28/16 11:35 12/28/16 11:35 12/28/16 11:35 12/28/16 11:35 Intake & Output 12/27/16 12/28/16 12/29/16 06:59 06:59 06:59 Intake Total 1438 1463 474 Output Total 2000 790 350 Balance -562 673 124 Weight 110 kg 109 kg GENERAL: This is a well-developed well-nourished obese white female resting in bed currently in no acute distress. HEART: Regular rate and rhythm. No murmurs, rubs or gallops. LUNGS: Clear to auscultation bilaterally with equal rise and fall of the chest. ABDOMEN: Soft, obese, nontender, nondistended with normoactive bowel sounds EXTREMETIES: No clubbing, cyanosis or edema. 2+ peripheral pulses bilaterally. NEURO: Awake, alert. Cranial nerves II through XII are grossly intact. Results Laboratory Results: 12/26/16 04:40 12/28/16 10:27 12/27/16 12/27/16 12/27/16 15:55 19:00 22:55 Sodium 123.8 L 123.6 L 125.2 L Potassium 3.4 L 3.5 L 3.6 Chloride 87 L 87 L 88 L Carbon Dioxide 25 26 26 Anion Gap 12 11 11 BUN 9 10 9 Creatinine 0.54 0.56 0.54 Est GFR ( Amer) > 60 > 60 > 60 Est GFR (Non-Af Amer) > 60 > 60 > 60 Glucose 218 H 206 H 169 H Calcium 9.4 9.2 9.3 12/28/16 10:27 Sodium 127.5 L Potassium 3.6 Chloride 89 L Carbon Dioxide 26 Anion Gap 13 BUN 11 Creatinine 0.57 Est GFR ( Amer) > 60 Est GFR (Non-Af Amer) > 60 Glucose 220 H Calcium 9.8 12/26/16 17:45 Nasophary (Mrsa Only) MRSA Culture - Final NO MRSA RECOVERED 12/25/16 12/25/16 12/26/16 20:22 20:22 00:55 Creatine Kinase 2380 H 2690 H CK-MB (CK-2) 21.00 H Troponin I < 0.012 NT-Pro-B Natriuret Pep 12/26/16 12/26/16 12/26/16 00:55 00:55 00:55 Creatine Kinase Cancelled CK-MB (CK-2) 18.90 H Troponin I < 0.012 NT-Pro-B Natriuret Pep 197 12/26/16 12/26/16 12/27/16 07:56 07:56 07:30 Creatine Kinase 1528 H 492 H CK-MB (CK-2) 12.70 H Troponin I < 0.012 NT-Pro-B Natriuret Pep Impressions: Chest X-Ray 12/25/16 19:01 IMPRESSION: NO ACUTE RADIOGRAPHIC FINDING IN THE CHEST. Hip/Pelvis X-Ray 12/27/16 00:00 IMPRESSION: No acute fracture identified of the right hip Assessment & Plan - Diagnosis (1) Hyponatremia Is this a current diagnosis for this admission?: Yes Plan: Likely from polydipsia. The patient refills a 32 ounce mug filled with ice multiple times a day. She is currently fluid restricted to 1000 mL a day. I will also add sodium tablets. I will also liberalize her diet. Sodium is currently 125.5. If it remains in this range or better tomorrow I do not see why the patient cannot be discharged home from this perspective. (2) Hypokalemia Is this a current diagnosis for this admission?: Yes Plan: Replaced and resolved. (3) Hypomagnesemia Is this a current diagnosis for this admission?: Yes Plan: Replaced and resolved. (4) Rhabdomyolysis Qualifiers: Rhabdomyolysis type: non-traumatic Qualified Code(s): M62.82 - Rhabdomyolysis Is this a current diagnosis for this admission?: Yes Plan: Improved. (5) Urinary tract infection Qualifiers: Urinary tract infection type: acute cystitis Hematuria presence: with hematuria Qualified Code(s): N30.01 - Acute cystitis with hematuria Is this a current diagnosis for this admission?: Yes Plan: Continue Rocephin. Because this is occurring in an elderly patient I do consider this to be a complicated UTI and duration of treatment should be 7 days. (6) Falls Plan: The patient has had multiple falls as an outpatient. She has not been seen by her primary care physician in [place]. She is being followed by physical therapy. She her hip x-ray was negative. The patient was also seen for her Charcot foot by the general surgeon who recommended wraps. We will need to consult discharge planning for home needs while the patient is out of state. The patient should continue to use her orthotics. The patient was able to walk with a rolling walker. (7) Diabetes mellitus Plan: Continue sliding scale insulin. - Time Time Spent with patient: 35 or more minutes
[2016-12-28] MEDS: LIDOCAINE 5% (700 MG) TRANSDERMAL ADH..PATCH TP SCH (18:03)
[2016-12-28] MEDS: SODIUM CHLORIDE 1 GM TABLET PO SCH (18:03)
[2016-12-28] MEDS: MINERAL OIL/PETROLATUM,WHITE CREAM 114 GM TP PRN (18:09)
[2016-12-28] MEDS: NAPROXEN 250 MG TABLET PO PRN (22:25)
[2016-12-28 22:35] LABS: ANION GAP 14 (5-19); BLOOD UREA NITROGEN 13 mg/dL (7-20); CALCIUM 10.2 mg/dL (8.4-10.2); CARBON DIOXIDE 27 mmol/L (22-30); CHLORIDE 87 mmol/L (98-107); GLUCOSE 261 mg/dL (75-110); POTASSIUM 3.7 mmol/L (3.6-5.0); SODIUM 127.5 mmol/L (137-145)
[2016-12-29 05:12] LABS: HEMATOCRIT 37.8 % (36.0-47.0); HEMOGLOBIN 13.1 g/dL (12.0-15.5); HGB HCT DIFFERENCE 1.5; MEAN CORPUSCULAR HEMOGLOBIN 26.8 pg (27.0-33.4); MEAN CORPUSCULAR HGB CONC 34.8 g/dL (32.0-36.0); MEAN CORPUSCULAR VOLUME 77 fl (80-97); RED BLOOD COUNT 4.91 10^6/uL (3.72-5.28); RED CELL DISTRIBUTION WIDTH 16.3 % (11.5-14.0); WHITE BLOOD COUNT 7.9 10^3/uL (4.0-10.5)
[2016-12-29] MEDS: HEPARIN SOD (PORCINE) 5,000 UNIT/ML 1 ML SYRINGE SUBCUT SCH ×3 (06:23→21:09)
[2016-12-29] MEDS: PHENAZOPYRIDINE HCL 100 MG TABLET PO SCH ×3 (06:24→21:10)
[2016-12-29] MEDS: CLONIDINE HCL 0.1 MG TABLET PO SCH ×3 (06:24→21:11)
[2016-12-29] MEDS: VERAPAMIL HCL 80 MG TABLET PO SCH ×3 (06:24→21:10)
[2016-12-29] MEDS ORDERED: INSULIN GLARGINE,HUM.REC.ANLOG 1,000 UNIT/10 ML UNIT SUBCUT SCH (08:00)
[2016-12-29] MEDS: INSULIN LISPRO 100 UNIT/ML 3 ML VIAL SUBCUT PRN ×4 (08:28→22:21)
[2016-12-29] MEDS: ASPIRIN 81 MG TABLET, ENT COATED PO SCH (10:21)
[2016-12-29] MEDS: DOCUSATE SODIUM 100 MG CAPSULE PO SCH (10:21)
[2016-12-29] MEDS: LANSOPRAZOLE 15 MG TAB.RAP.DR PO SCH (10:21)
[2016-12-29] MEDS: SODIUM CHLORIDE 1 GM TABLET PO SCH ×2 (10:21→17:15)
[2016-12-29] MEDS: POTASSIUM CHLORIDE 10 MEQ TABLET.SA PO SCH (10:21)
[2016-12-29] MEDS: RAMIPRIL 10 MG CAPSULE PO SCH ×2 (10:22→21:10)
[2016-12-29] MEDS: PREGABALIN 100 MG CAPSULE PO SCH ×2 (10:22→21:10)
[2016-12-29] MEDS: CEFTRIAXONE 1 GM/D5W RTU 1 GM/50 ML RTUPB IV SCH (10:22)
[2016-12-29] MEDS: MINERAL OIL/PETROLATUM,WHITE CREAM 114 GM TP PRN (10:40)
[2016-12-29 10:58] LABS: ANION GAP 14 (5-19); BLOOD UREA NITROGEN 11 mg/dL (7-20); CALCIUM 9.8 mg/dL (8.4-10.2); CARBON DIOXIDE 25 mmol/L (22-30); CHLORIDE 91 mmol/L (98-107); GLUCOSE 312 mg/dL (75-110); POTASSIUM 3.8 mmol/L (3.6-5.0)
[2016-12-29] MEDS: NAPROXEN 250 MG TABLET PO PRN (11:44)
--- NOTE | 2016-12-29 15:02 | RADIOLOGY REPORT (SQ) ---
EXAM DESCRIPTION: KNEE BILATERAL 1-2 VIEWS COMPLETED DATE/TIME: 12/29/2016 2:52 pm REASON FOR STUDY: falls COMPARISON: None. NUMBER OF VIEWS: Two views. TECHNIQUE: AP and lateral radiographic images acquired of the right and left knee. LIMITATIONS: None. FINDINGS: MINERALIZATION: Normal. BONES: No acute fracture or dislocation. Joint space narrowing with small osteophytes. Irregular co ntour of the posterior patella, worse in the right knee, possibly due to chronic chondromalacia. No worrisome bone lesions. JOINT: Faint chondrocalcinosis. No effusion. SOFT TISSUES: No soft tissue swelling. No radio-opaque foreign body. OTHER: No other significant finding. IMPRESSION: CHRONIC DEGENERATIVE CHANGES DESCRIBED. NO ACUTE FINDINGS. TECHNICAL DOCUMENTATION: JOB ID: [id number] [employer])- All Rights Reserved
[2016-12-29] MEDS: ACETAMINOPHEN 325 MG TABLET PO PRN (16:25)
[2016-12-29] MEDS: IPRATROPIUM/ALBUTEROL 0.5-2.5 MG/3 ML AMPUL NEB PRN (16:29)
--- NOTE | 2016-12-29 17:47 | PDOC PROGRESS REPORT ---
Subjective Progress Note for:: 12/29/16 Subjective:: This is a follow-up visit for hyponatremia.. The patient feels better this evening. She is preparing to eat dinner. Overnight she had to in and out cath. Bladder scan this morning only showed 150 cc of urine Physical Exam Vital Signs: Temp Pulse Resp BP Pulse Ox 98.3 F 76 18 146/66 H 93 12/29/16 11:17 12/29/16 14:00 12/29/16 11:17 12/29/16 11:17 12/29/16 11:17 Intake & Output 12/28/16 12/29/16 12/30/16 06:59 06:59 06:59 Intake Total 1463 1001 723 Output Total 790 1575 Balance 673 -574 723 Weight 109 kg 109.2 kg GENERAL: This is a well-developed well-nourished obese white female resting in bed currently in no acute distress. She seems brighter and happier this morning. She is preparing to eat dinner. HEART: Regular rate and rhythm. No murmurs, rubs or gallops. LUNGS: Clear to auscultation bilaterally with equal rise and fall of the chest. ABDOMEN: Soft, obese, nontender, nondistended with normoactive bowel sounds EXTREMETIES: No clubbing, cyanosis or edema. 2+ peripheral pulses bilaterally. NEURO: Awake, alert. Cranial nerves II through XII are grossly intact. More conversational today. Results Laboratory Results: 12/29/16 04:58 12/29/16 10:22 12/28/16 12/29/16 12/29/16 21:52 04:58 10:22 WBC 7.9 RBC 4.91 Hgb 13.1 Hct 37.8 MCV 77 L MCH 26.8 L MCHC 34.8 RDW 16.3 H Plt Count 364 Sodium 127.5 L 130.0 L Potassium 3.7 3.8 Chloride 87 L 91 L Carbon Dioxide 27 25 Anion Gap 14 14 BUN 13 11 Creatinine 0.70 0.60 Est GFR ( Amer) > 60 > 60 Est GFR (Non-Af Amer) > 60 > 60 Glucose 261 H 312 H Calcium 10.2 9.8 12/25/16 12/25/16 12/26/16 20:22 20:22 00:55 Creatine Kinase 2380 H 2690 H CK-MB (CK-2) 21.00 H Troponin I < 0.012 NT-Pro-B Natriuret Pep 12/26/16 12/26/16 12/26/16 00:55 00:55 00:55 Creatine Kinase Cancelled CK-MB (CK-2) 18.90 H Troponin I < 0.012 NT-Pro-B Natriuret Pep 197 12/26/16 12/26/16 12/27/16 07:56 07:56 07:30 Creatine Kinase 1528 H 492 H CK-MB (CK-2) 12.70 H Troponin I < 0.012 NT-Pro-B Natriuret Pep Impressions: Chest X-Ray 12/25/16 19:01 IMPRESSION: NO ACUTE RADIOGRAPHIC FINDING IN THE CHEST. Hip/Pelvis X-Ray 12/27/16 00:00 IMPRESSION: No acute fracture identified of the right hip Knee X-Ray 12/29/16 00:00 IMPRESSION: CHRONIC DEGENERATIVE CHANGES DESCRIBED. NO ACUTE FINDINGS. Assessment & Plan - Diagnosis (1) Hyponatremia Is this a current diagnosis for this admission?: Yes Plan: Likely from polydipsia. The patient refills a 32 ounce mug filled with ice multiple times a day. She is currently fluid restricted to 1000 mL a day. I will also add sodium tablets. I will also liberalize her diet. Sodium is currently 130. Hold off on any further labs tomorrow. (2) Hypokalemia Is this a current diagnosis for this admission?: Yes Plan: Replaced and resolved. (3) Hypomagnesemia Is this a current diagnosis for this admission?: Yes Plan: Replaced and resolved. (4) Rhabdomyolysis Qualifiers: Rhabdomyolysis type: non-traumatic Qualified Code(s): M62.82 - Rhabdomyolysis Is this a current diagnosis for this admission?: Yes Plan: Improved. (5) Urinary tract infection Qualifiers: Urinary tract infection type: acute cystitis Hematuria presence: with hematuria Qualified Code(s): N30.01 - Acute cystitis with hematuria Is this a current diagnosis for this admission?: Yes Plan: Continue Rocephin. Because this is occurring in an elderly patient I do consider this to be a complicated UTI and duration of treatment should be 7 days. (6) Falls Plan: The patient has had multiple falls as an outpatient. She has not been seen by her primary care physician in [place]. She is being followed by physical therapy. She her hip x-ray was negative. The patient was also seen for her Charcot foot by the general surgeon who recommended wraps. Patient was seen by physical therapy today. [facility] is being recommended and discharge planning is already making arrangements to move in this direction. At this time patient is stable and able to be downgraded. (7) Diabetes mellitus Plan: Continue sliding scale insulin. Lantus was restarted this morning. We will let her finish out the day with the current regimen before deciding to make any changes. - Time Time Spent with patient: 15-24 minutes Anticipated discharge: SNF Within: within 72 hours
[2016-12-29] MEDS: LIDOCAINE 5% (700 MG) TRANSDERMAL ADH..PATCH TP SCH (18:45)
[2016-12-29] MEDS: POLYETHYLENE GLYCOL 3350 POWDER 17 GM/1 PACKET PO PRN (21:10)
[2016-12-29 22:27] LABS: ANION GAP 12 (5-19); BLOOD UREA NITROGEN 13 mg/dL (7-20); CALCIUM 9.5 mg/dL (8.4-10.2); CARBON DIOXIDE 26 mmol/L (22-30); CHLORIDE 91 mmol/L (98-107); CREATININE RESULT 0.73 mg/dL (0.52-1.25); GLUCOSE 262 mg/dL (75-110); POTASSIUM 4.3 mmol/L (3.6-5.0); SODIUM 128.8 mmol/L (137-145)
[2016-12-30] MEDS: CLONIDINE HCL 0.1 MG TABLET PO SCH ×3 (05:26→21:52)
[2016-12-30] MEDS: HEPARIN SOD (PORCINE) 5,000 UNIT/ML 1 ML SYRINGE SUBCUT SCH ×3 (05:26→21:52)
[2016-12-30] MEDS: VERAPAMIL HCL 80 MG TABLET PO SCH ×3 (05:26→21:52)
[2016-12-30] MEDS: PHENAZOPYRIDINE HCL 100 MG TABLET PO SCH ×3 (05:26→21:52)
[2016-12-30] MEDS: INSULIN LISPRO 100 UNIT/ML 3 ML VIAL SUBCUT PRN ×3 (08:02→21:52)
[2016-12-30] MEDS: INSULIN GLARGINE,HUM.REC.ANLOG 300 UNIT/3 ML INSULN.PEN SUBCUT SCH (08:02)
[2016-12-30] MEDS: IPRATROPIUM/ALBUTEROL 0.5-2.5 MG/3 ML AMPUL NEB PRN (09:44)
[2016-12-30] MEDS: LANSOPRAZOLE 15 MG TAB.RAP.DR PO SCH (10:33)
[2016-12-30] MEDS: POTASSIUM CHLORIDE 10 MEQ TABLET.SA PO SCH (10:33)
[2016-12-30] MEDS: CEFTRIAXONE 1 GM/D5W RTU 1 GM/50 ML RTUPB IV SCH (10:33)
[2016-12-30] MEDS: DOCUSATE SODIUM 100 MG CAPSULE PO SCH (10:33)
[2016-12-30] MEDS: ASPIRIN 81 MG TABLET, ENT COATED PO SCH (10:33)
[2016-12-30] MEDS: SODIUM CHLORIDE 1 GM TABLET PO SCH ×2 (10:33→16:53)
[2016-12-30] MEDS: PREGABALIN 100 MG CAPSULE PO SCH ×2 (10:33→21:52)
[2016-12-30] MEDS: RAMIPRIL 10 MG CAPSULE PO SCH ×2 (10:34→21:52)
[2016-12-30] MEDS: MINERAL OIL/PETROLATUM,WHITE CREAM 114 GM TP PRN (10:34)
[2016-12-30] MEDS: POLYETHYLENE GLYCOL 3350 POWDER 17 GM/1 PACKET PO PRN (10:34)
[2016-12-30 11:46] LABS: ANION GAP 14 (5-19); BLOOD UREA NITROGEN 11 mg/dL (7-20); CALCIUM 9.9 mg/dL (8.4-10.2); CARBON DIOXIDE 26 mmol/L (22-30); CHLORIDE 95 mmol/L (98-107); CREATININE RESULT 0.54 mg/dL (0.52-1.25); GLUCOSE 272 mg/dL (75-110); POTASSIUM 4.1 mmol/L (3.6-5.0); SODIUM 134.8 mmol/L (137-145)
--- NOTE | 2016-12-30 16:03 | PDOC PROGRESS REPORT ---
Subjective Progress Note for:: 12/30/16 Subjective:: This is a follow-up visit for hyponatremia. The patient feels good this afternoon. No acute events overnight Physical Exam Vital Signs: Temp Pulse Resp BP Pulse Ox 98.3 F 81 18 163/72 H 91 L 12/30/16 11:53 12/30/16 11:53 12/30/16 11:53 12/30/16 11:53 12/30/16 11:53 Intake & Output 12/29/16 12/30/16 12/31/16 06:59 06:59 06:59 Intake Total 1001 1508 Output Total 1575 2300 Balance -574 -792 Weight 109.2 kg 110.6 kg GENERAL: This is a well-developed well-nourished obese white female resting in bed currently in no acute distress. She seems brighter and happier this morning. HEART: Regular rate and rhythm. No murmurs, rubs or gallops. LUNGS: Clear to auscultation bilaterally with equal rise and fall of the chest. ABDOMEN: Soft, obese, nontender, nondistended with normoactive bowel sounds EXTREMETIES: No clubbing, cyanosis or edema. 2+ peripheral pulses bilaterally. NEURO: Awake, alert. Cranial nerves II through XII are grossly intact. conversational today. Results Laboratory Results: 12/29/16 04:58 12/30/16 11:14 12/29/16 12/30/16 21:55 11:14 Sodium 128.8 L 134.8 L Potassium 4.3 4.1 Chloride 91 L 95 L Carbon Dioxide 26 26 Anion Gap 12 14 BUN 13 11 Creatinine 0.73 0.54 Est GFR ( Amer) > 60 > 60 Est GFR (Non-Af Amer) > 60 > 60 Glucose 262 H 272 H Calcium 9.5 9.9 12/25/16 12/25/16 12/26/16 20:22 20:22 00:55 Creatine Kinase 2380 H 2690 H CK-MB (CK-2) 21.00 H Troponin I < 0.012 NT-Pro-B Natriuret Pep 12/26/16 12/26/16 12/26/16 00:55 00:55 00:55 Creatine Kinase Cancelled CK-MB (CK-2) 18.90 H Troponin I < 0.012 NT-Pro-B Natriuret Pep 197 12/26/16 12/26/16 12/27/16 07:56 07:56 07:30 Creatine Kinase 1528 H 492 H CK-MB (CK-2) 12.70 H Troponin I < 0.012 NT-Pro-B Natriuret Pep Impressions: Chest X-Ray 12/25/16 19:01 IMPRESSION: NO ACUTE RADIOGRAPHIC FINDING IN THE CHEST. Hip/Pelvis X-Ray 12/27/16 00:00 IMPRESSION: No acute fracture identified of the right hip Knee X-Ray 12/29/16 00:00 IMPRESSION: CHRONIC DEGENERATIVE CHANGES DESCRIBED. NO ACUTE FINDINGS. Assessment & Plan - Diagnosis (1) Hyponatremia Is this a current diagnosis for this admission?: Yes Plan: Likely from polydipsia. The patient refills a 32 ounce mug filled with ice multiple times a day. She is currently fluid restricted to 1000 mL a day. Continue sodium tablets. Continue broad diet. Sodium is currently 134. (2) Hypokalemia Is this a current diagnosis for this admission?: Yes Plan: Replaced and resolved. (3) Hypomagnesemia Is this a current diagnosis for this admission?: Yes Plan: Replaced and resolved. (4) Rhabdomyolysis Qualifiers: Rhabdomyolysis type: non-traumatic Qualified Code(s): M62.82 - Rhabdomyolysis Is this a current diagnosis for this admission?: Yes Plan: Improved. (5) Urinary tract infection Qualifiers: Urinary tract infection type: acute cystitis Hematuria presence: with hematuria Qualified Code(s): N30.01 - Acute cystitis with hematuria Is this a current diagnosis for this admission?: Yes Plan: Continue Rocephin. Because this is occurring in an elderly patient I do consider this to be a complicated UTI and duration of treatment should be 7 days. (6) Falls Plan: The patient has had multiple falls as an outpatient. She has not been seen by her primary care physician in [place]. She is being followed by physical therapy. She her hip x-ray was negative. The patient was also seen for her Charcot foot by the general surgeon who recommended wraps. Patient was seen by physical therapy today. SNF is being recommended and discharge planning is already making arrangements to move in this direction. (7) Diabetes mellitus Plan: Continue sliding scale insulin. Lantus was restarted. The patient's family wants her to be on twice daily dosing. I have agree for their comfort, but I will change this if becomes totally unnecessary - Time Time Spent with patient: 25-34 minutes - Inpatient Certification Medical Necessity: Need Close Monitoring Due to Risk of Patient Decompensation
[2016-12-30] MEDS: LIDOCAINE 5% (700 MG) TRANSDERMAL ADH..PATCH TP SCH (16:53)
[2016-12-30] MEDS ORDERED: INSULIN GLARGINE,HUM.REC.ANLOG 1,000 UNIT/10 ML UNIT SUBCUT SCH (18:00)
[2016-12-30] MEDS ORDERED: SODIUM CHLORIDE 5% OPH SOLN 15 ML OU PRN (19:36)
[2016-12-30] MEDS: NAPROXEN 250 MG TABLET PO PRN (23:24)
[2016-12-31 05:33] LABS: ABSOLUTE BASOPHILS # (AUTO) 0.1 10^3/uL (0.0-0.2); ABSOLUTE EOSINOPHILS # (AUTO) 0.3 10^3/uL (0.0-0.6); ABSOLUTE LYMPHOCYTES (AUTO) 1.2 10^3/uL (0.5-4.7); ABSOLUTE MONOCYTES (AUTO) 0.7 10^3/uL (0.1-1.4); ABSOLUTE NEUT (AUTO) 5.7 10^3/uL (1.7-8.2); BASOPHILS % (AUTO) 1.4 % (0-2); EOSINOPHILS % (AUTO) 4.2 % (0-6); HEMATOCRIT 36.5 % (36.0-47.0); HEMOGLOBIN 12.6 g/dL (12.0-15.5); HGB HCT DIFFERENCE 1.3; LYMPHOCYTES % (AUTO) 15.2 % (13-45); MEAN CORPUSCULAR HEMOGLOBIN 27.1 pg (27.0-33.4); MEAN CORPUSCULAR HGB CONC 34.4 g/dL (32.0-36.0); MEAN CORPUSCULAR VOLUME 79 fl (80-97); MONOCYTES % (AUTO) 8.5 % (3-13); RED BLOOD COUNT 4.64 10^6/uL (3.72-5.28); RED CELL DISTRIBUTION WIDTH 16.7 % (11.5-14.0); SEGMENTED NEUTROPHILS % (AUTO) 70.7 % (42-78); WHITE BLOOD COUNT 8.1 10^3/uL (4.0-10.5)
[2016-12-31 05:57] LABS: ANION GAP 12 (5-19); BLOOD UREA NITROGEN 13 mg/dL (7-20); CALCIUM 9.9 mg/dL (8.4-10.2); CARBON DIOXIDE 28 mmol/L (22-30); CHLORIDE 94 mmol/L (98-107); CREATININE RESULT 0.63 mg/dL (0.52-1.25); GLUCOSE 186 mg/dL (75-110); MAGNESIUM 1.5 mg/dL (1.6-2.3); SODIUM 133.6 mmol/L (137-145)
[2016-12-31 06:06] LABS: POTASSIUM 5.1 mmol/L (3.6-5.0)
[2016-12-31] MEDS: VERAPAMIL HCL 80 MG TABLET PO SCH ×3 (06:18→22:37)
[2016-12-31] MEDS: CLONIDINE HCL 0.1 MG TABLET PO SCH ×3 (06:18→22:37)
[2016-12-31] MEDS: HEPARIN SOD (PORCINE) 5,000 UNIT/ML 1 ML SYRINGE SUBCUT SCH ×3 (06:18→22:37)
[2016-12-31] MEDS: PHENAZOPYRIDINE HCL 100 MG TABLET PO SCH ×3 (06:18→22:37)
[2016-12-31] MEDS: PREGABALIN 100 MG CAPSULE PO SCH ×2 (09:48→22:37)
[2016-12-31] MEDS: CEFTRIAXONE 1 GM/D5W RTU 1 GM/50 ML RTUPB IV SCH (09:48)
[2016-12-31] MEDS: DOCUSATE SODIUM 100 MG CAPSULE PO SCH (09:48)
[2016-12-31] MEDS: LANSOPRAZOLE 15 MG TAB.RAP.DR PO SCH (09:48)
[2016-12-31] MEDS: POTASSIUM CHLORIDE 10 MEQ TABLET.SA PO SCH (09:48)
[2016-12-31] MEDS: INSULIN GLARGINE,HUM.REC.ANLOG 300 UNIT/3 ML INSULN.PEN SUBCUT SCH ×2 (09:48→18:10)
[2016-12-31] MEDS: ASPIRIN 81 MG TABLET, ENT COATED PO SCH (09:48)
[2016-12-31] MEDS: SODIUM CHLORIDE 1 GM TABLET PO SCH ×2 (09:48→18:10)
[2016-12-31] MEDS: RAMIPRIL 10 MG CAPSULE PO SCH ×2 (09:48→22:34)
[2016-12-31] MEDS ORDERED: MAGNESIUM SULFATE/D5W 1 GM/100 ML RTUPB IV ONE (12:00)
--- NOTE | 2016-12-31 14:20 | PDOC PROGRESS REPORT ---
Subjective Progress Note for:: 12/31/16 Subjective:: This is a follow-up visit for hyponatremia. The patient feels good this afternoon. No acute events overnight Physical Exam Vital Signs: Temp Pulse Resp BP Pulse Ox 98.2 F 74 15 147/76 H 94 12/30/16 23:42 12/31/16 09:31 12/31/16 09:31 12/30/16 23:42 12/31/16 09:31 Intake & Output 12/30/16 12/31/16 01/01/17 06:59 06:59 06:59 Intake Total 1508 1240 Output Total 2300 1100 Balance -792 140 Weight 110.6 kg 112.2 kg GENERAL: This is a well-developed well-nourished obese white female resting in bed currently in no acute distress. She seems brighter and happier this morning. She set herself up in bed and started preparing to eat her lunch, club sandwich and fruit bowl. HEART: Regular rate and rhythm. No murmurs, rubs or gallops. LUNGS: Clear to auscultation bilaterally with equal rise and fall of the chest. ABDOMEN: Soft, obese, nontender, nondistended with normoactive bowel sounds EXTREMETIES: No clubbing, cyanosis or edema. 2+ peripheral pulses bilaterally. NEURO: Awake, alert. Cranial nerves II through XII are grossly intact. conversational today. Results Laboratory Results: 12/31/16 04:11 12/31/16 04:11 12/31/16 12/31/16 04:11 04:11 WBC 8.1 RBC 4.64 Hgb 12.6 Hct 36.5 MCV 79 L MCH 27.1 MCHC 34.4 RDW 16.7 H Plt Count 418 Seg Neutrophils % 70.7 Lymphocytes % 15.2 Monocytes % 8.5 Eosinophils % 4.2 Basophils % 1.4 Absolute Neutrophils 5.7 Absolute Lymphocytes 1.2 Absolute Monocytes 0.7 Absolute Eosinophils 0.3 Absolute Basophils 0.1 Sodium 133.6 L Potassium 5.1 H D Chloride 94 L Carbon Dioxide 28 Anion Gap 12 BUN 13 Creatinine 0.63 Est GFR ( Amer) > 60 Est GFR (Non-Af Amer) > 60 Glucose 186 H Calcium 9.9 Magnesium 1.5 L 12/25/16 12/25/16 12/26/16 20:22 20:22 00:55 Creatine Kinase 2380 H 2690 H CK-MB (CK-2) 21.00 H Troponin I < 0.012 NT-Pro-B Natriuret Pep 12/26/16 12/26/16 12/26/16 00:55 00:55 00:55 Creatine Kinase Cancelled CK-MB (CK-2) 18.90 H Troponin I < 0.012 NT-Pro-B Natriuret Pep 197 12/26/16 12/26/16 12/27/16 07:56 07:56 07:30 Creatine Kinase 1528 H 492 H CK-MB (CK-2) 12.70 H Troponin I < 0.012 NT-Pro-B Natriuret Pep Impressions: Chest X-Ray 12/25/16 19:01 IMPRESSION: NO ACUTE RADIOGRAPHIC FINDING IN THE CHEST. Hip/Pelvis X-Ray 12/27/16 00:00 IMPRESSION: No acute fracture identified of the right hip Knee X-Ray 12/29/16 00:00 IMPRESSION: CHRONIC DEGENERATIVE CHANGES DESCRIBED. NO ACUTE FINDINGS. Assessment & Plan - Diagnosis (1) Hyponatremia Is this a current diagnosis for this admission?: Yes Plan: Likely from polydipsia. The patient refills a 32 ounce mug filled with ice multiple times a day. She is currently fluid restricted to 1000 mL a day. Continue sodium tablets. Continue broad diet. Sodium is near normal (2) Hypokalemia Is this a current diagnosis for this admission?: Yes Plan: Replaced and resolved. (3) Hypomagnesemia Is this a current diagnosis for this admission?: Yes Plan: Replaced (4) Rhabdomyolysis Qualifiers: Rhabdomyolysis type: non-traumatic Qualified Code(s): M62.82 - Rhabdomyolysis Is this a current diagnosis for this admission?: Yes Plan: Improved. (5) Urinary tract infection Qualifiers: Urinary tract infection type: acute cystitis Hematuria presence: with hematuria Qualified Code(s): N30.01 - Acute cystitis with hematuria Is this a current diagnosis for this admission?: Yes Plan: Continue Rocephin. Because this is occurring in an elderly patient I do consider this to be a complicated UTI and duration of treatment should be 7 days. (6) Falls Plan: The patient has had multiple falls as an outpatient. She has not been seen by her primary care physician in [place]. She is being followed by physical therapy. She her hip x-ray was negative. The patient was also seen for her Charcot foot by the general surgeon who recommended wraps. Patient was seen by physical therapy today. SNF is being recommended and discharge planning is already making arrangements to move in this direction. (7) Diabetes mellitus Plan: Continue sliding scale insulin. Lantus was restarted. The patient's family wants her to be on twice daily dosing. I have agree for their comfort, but I will change this if becomes totally unnecessary - Time Time Spent with patient: 15-24 minutes
[2016-12-31] MEDS: INSULIN LISPRO 100 UNIT/ML 3 ML VIAL SUBCUT PRN ×2 (18:10→22:36)
[2016-12-31] MEDS: LIDOCAINE 5% (700 MG) TRANSDERMAL ADH..PATCH TP SCH (18:10)
[2016-12-31] MEDS: MAG HYDROX/AL HYDROX/SIMETH SUSP 30 ML UDCUP PO PRN (19:57)
[2016-12-31] MEDS: ACETAMINOPHEN 325 MG TABLET PO PRN (19:57)
[2017-01-01] MEDS: IPRATROPIUM/ALBUTEROL 0.5-2.5 MG/3 ML AMPUL NEB PRN ×2 (02:47→11:18)
[2017-01-01] MEDS: PHENAZOPYRIDINE HCL 100 MG TABLET PO SCH ×3 (06:05→23:02)
[2017-01-01] MEDS: NAPROXEN 250 MG TABLET PO PRN (06:05)
[2017-01-01] MEDS: HEPARIN SOD (PORCINE) 5,000 UNIT/ML 1 ML SYRINGE SUBCUT SCH ×3 (06:05→23:00)
[2017-01-01] MEDS: CLONIDINE HCL 0.1 MG TABLET PO SCH ×3 (06:05→23:01)
[2017-01-01] MEDS: VERAPAMIL HCL 80 MG TABLET PO SCH ×3 (06:05→23:02)
[2017-01-01] MEDS: INSULIN GLARGINE,HUM.REC.ANLOG 300 UNIT/3 ML INSULN.PEN SUBCUT SCH ×2 (08:18→17:31)
[2017-01-01] MEDS: INSULIN LISPRO 100 UNIT/ML 3 ML VIAL SUBCUT PRN ×3 (08:19→23:18)
[2017-01-01] MEDS: CEFTRIAXONE 1 GM/D5W RTU 1 GM/50 ML RTUPB IV SCH (11:26)
[2017-01-01] MEDS: ASPIRIN 81 MG TABLET, ENT COATED PO SCH (11:27)
[2017-01-01] MEDS: DOCUSATE SODIUM 100 MG CAPSULE PO SCH (11:27)
[2017-01-01] MEDS: PREGABALIN 100 MG CAPSULE PO SCH ×2 (11:27→23:01)
[2017-01-01] MEDS: POTASSIUM CHLORIDE 10 MEQ TABLET.SA PO SCH (11:27)
[2017-01-01] MEDS: LANSOPRAZOLE 15 MG TAB.RAP.DR PO SCH (11:27)
[2017-01-01] MEDS: RAMIPRIL 10 MG CAPSULE PO SCH ×2 (11:28→23:02)
[2017-01-01] MEDS: SODIUM CHLORIDE 1 GM TABLET PO SCH ×2 (11:28→17:31)
[2017-01-01] MEDS: POLYVINYL ALCOHOL 1.4% OPH SOLN 15 ML OU PRN (16:17)
[2017-01-01] MEDS: LIDOCAINE 5% (700 MG) TRANSDERMAL ADH..PATCH TP SCH (17:31)
[2017-01-02] MEDS: IPRATROPIUM/ALBUTEROL 0.5-2.5 MG/3 ML AMPUL NEB PRN ×2 (01:11→14:18)
[2017-01-02] MEDS: VERAPAMIL HCL 80 MG TABLET PO SCH ×3 (05:45→21:43)
[2017-01-02] MEDS: CLONIDINE HCL 0.1 MG TABLET PO SCH ×3 (05:45→21:43)
[2017-01-02] MEDS: PHENAZOPYRIDINE HCL 100 MG TABLET PO SCH ×3 (05:45→21:43)
[2017-01-02] MEDS: HEPARIN SOD (PORCINE) 5,000 UNIT/ML 1 ML SYRINGE SUBCUT SCH ×3 (05:45→21:43)
[2017-01-02] MEDS: INSULIN LISPRO 100 UNIT/ML 3 ML VIAL SUBCUT PRN ×4 (08:28→21:52)
[2017-01-02] MEDS: INSULIN GLARGINE,HUM.REC.ANLOG 300 UNIT/3 ML INSULN.PEN SUBCUT SCH ×2 (08:28→18:21)
[2017-01-02] MEDS: SODIUM CHLORIDE 1 GM TABLET PO SCH ×2 (09:38→18:21)
[2017-01-02] MEDS: ASPIRIN 81 MG TABLET, ENT COATED PO SCH (09:39)
[2017-01-02] MEDS: DOCUSATE SODIUM 100 MG CAPSULE PO SCH (09:39)
[2017-01-02] MEDS: PREGABALIN 100 MG CAPSULE PO SCH ×2 (09:39→21:43)
[2017-01-02] MEDS: RAMIPRIL 10 MG CAPSULE PO SCH ×2 (09:39→21:43)
[2017-01-02] MEDS: POTASSIUM CHLORIDE 10 MEQ TABLET.SA PO SCH (09:39)
[2017-01-02] MEDS: LANSOPRAZOLE 15 MG TAB.RAP.DR PO SCH (09:40)
--- NOTE | 2017-01-02 13:22 | PDOC PROGRESS REPORT ---
Subjective Progress Note for:: 01/01/17 Subjective:: No acute complaint today. No fever or chills, no chest pain or shortness of breath or palpitations. Still with slight urinary frequency, but markedly improved. Physical Exam Vital Signs: Temp Pulse Resp BP Pulse Ox 98.5 F 77 18 144/67 H 94 01/02/17 11:35 01/02/17 11:35 01/02/17 11:35 01/02/17 11:35 01/02/17 11:35 Intake & Output 01/01/17 01/02/17 01/03/17 07:59 06:59 06:59 Intake Total Output Total Balance Weight Exam: GENERAL: This is a well-developed well-nourished female currently in no acute distress. HEART: Regular rate and rhythm. No murmurs, rubs or gallops. LUNGS: Clear to auscultation bilaterally with equal rise and fall of the chest. ABDOMEN: Soft, obese, nontender, nondistended with normoactive bowel sounds EXTREMETIES: No clubbing, cyanosis or edema. 2+ peripheral pulses bilaterally. NEURO: Awake, alert. Cranial nerves II through XII are grossly intact. Results Laboratory Results: 12/31/16 04:11 12/31/16 04:11 12/25/16 12/25/16 12/26/16 20:22 20:22 00:55 Creatine Kinase 2380 H 2690 H CK-MB (CK-2) 21.00 H Troponin I < 0.012 NT-Pro-B Natriuret Pep 12/26/16 12/26/16 12/26/16 00:55 00:55 00:55 Creatine Kinase Cancelled CK-MB (CK-2) 18.90 H Troponin I < 0.012 NT-Pro-B Natriuret Pep 197 12/26/16 12/26/16 12/27/16 07:56 07:56 07:30 Creatine Kinase 1528 H 492 H CK-MB (CK-2) 12.70 H Troponin I < 0.012 NT-Pro-B Natriuret Pep Impressions: Chest X-Ray 12/25/16 19:01 IMPRESSION: NO ACUTE RADIOGRAPHIC FINDING IN THE CHEST. Hip/Pelvis X-Ray 12/27/16 00:00 IMPRESSION: No acute fracture identified of the right hip Knee X-Ray 12/29/16 00:00 IMPRESSION: CHRONIC DEGENERATIVE CHANGES DESCRIBED. NO ACUTE FINDINGS. Assessment & Plan - Diagnosis (1) Diabetes mellitus Plan: Continue Rocephin IV for now to complete 7 days course for complicated UTI. Continue PT/OT. Discharge planning with plans for [facility] facility with rehab due to weakness and recurrent falls. (3) Rhabdomyolysis Qualifiers: Rhabdomyolysis type: non-traumatic Qualified Code(s): M62.82 - Rhabdomyolysis Is this a current diagnosis for this admission?: Yes (4) Urinary tract infection Qualifiers: Urinary tract infection type: acute cystitis Hematuria presence: with hematuria Qualified Code(s): N30.01 - Acute cystitis with hematuria Is this a current diagnosis for this admission?: Yes
--- NOTE | 2017-01-02 13:49 | PDOC PROGRESS REPORT ---
Subjective Progress Note for:: 01/02/17 Subjective:: Doing okay. Complains of vaginal itching consistent with previous yeast infection after antibiotics use. Normal significant discharge. Would like a dose of Diflucan as that has helped in the past. No fever or chills, no nausea or vomiting,. Denies dysuria or polyuria, no urinary frequency at this time. Completed Rocephin course 7 days yesterday, 01/01/17. Physical Exam Vital Signs: Temp Pulse Resp BP Pulse Ox 98.5 F 77 18 144/67 H 94 01/02/17 11:35 01/02/17 11:35 01/02/17 11:35 01/02/17 11:35 01/02/17 11:35 Intake & Output 01/01/17 01/02/17 01/03/17 07:59 06:59 06:59 Intake Total Output Total Balance Weight Exam: GENERAL: This is a well-developed well-nourished female currently in no acute distress. HEART: Regular rate and rhythm. No murmurs, rubs or gallops. LUNGS: Clear to auscultation bilaterally with equal rise and fall of the chest. ABDOMEN: Soft, obese, nontender, nondistended with normoactive bowel sounds EXTREMETIES: No clubbing, cyanosis or edema. 2+ peripheral pulses bilaterally. NEURO: Awake, alert. Cranial nerves II through XII are grossly intact. Results Laboratory Results: 12/31/16 04:11 12/31/16 04:11 12/25/16 12/25/16 12/26/16 20:22 20:22 00:55 Creatine Kinase 2380 H 2690 H CK-MB (CK-2) 21.00 H Troponin I < 0.012 NT-Pro-B Natriuret Pep 12/26/16 12/26/16 12/26/16 00:55 00:55 00:55 Creatine Kinase Cancelled CK-MB (CK-2) 18.90 H Troponin I < 0.012 NT-Pro-B Natriuret Pep 197 12/26/16 12/26/16 12/27/16 07:56 07:56 07:30 Creatine Kinase 1528 H 492 H CK-MB (CK-2) 12.70 H Troponin I < 0.012 NT-Pro-B Natriuret Pep Impressions: Chest X-Ray 12/25/16 19:01 IMPRESSION: NO ACUTE RADIOGRAPHIC FINDING IN THE CHEST. Hip/Pelvis X-Ray 12/27/16 00:00 IMPRESSION: No acute fracture identified of the right hip Knee X-Ray 12/29/16 00:00 IMPRESSION: CHRONIC DEGENERATIVE CHANGES DESCRIBED. NO ACUTE FINDINGS. Assessment & Plan - Diagnosis (1) Vaginal candidiasis Is this a current diagnosis for this admission?: Yes Plan: Likely secondary to antibiotics used for UTI treatment. We will treat with Diflucan 150 mg p.o. 1. (2) Urinary tract infection Qualifiers: Urinary tract infection type: acute cystitis Hematuria presence: with hematuria Qualified Code(s): N30.01 - Acute cystitis with hematuria Is this a current diagnosis for this admission?: Yes Plan: Status post 7 days course of IV Rocephin for complicated UTI. Urine culture grew E. coli that was pansensitive except resistant to Bactrim. (3) Diabetes mellitus Plan: Continue Lantus, sliding scale insulin. (4) Falls Plan: The patient has had multiple falls as an outpatient. She was here from [place] to visit her daughter. She is being followed by physical therapy. She her hip x- ray was negative. Plan is for SNF with rehab and care management working on this. (5) Rhabdomyolysis Qualifiers: Rhabdomyolysis type: non-traumatic Qualified Code(s): M62.82 - Rhabdomyolysis Is this a current diagnosis for this admission?: Yes Plan: Improved. Last CK from 12/27/16 was about 400. We will follow-up in a.m. (6) Hyponatremia Is this a current diagnosis for this admission?: Yes Plan: Improved. Hyponatremia likely from polydipsia. The patient reported at home refilled a 32 ounce mug filled with ice multiple times a day. She is currently fluid restricted to 1000 mL a day. On sodium tablets. We will follow-up Chem- 7 in a.m.
[2017-01-02] MEDS ORDERED: FLUCONAZOLE 100 MG TABLET PO ONE (15:00)
[2017-01-02] MEDS: LIDOCAINE 5% (700 MG) TRANSDERMAL ADH..PATCH TP SCH (18:22)
[2017-01-02] MEDS: POLYETHYLENE GLYCOL 3350 POWDER 17 GM/1 PACKET PO PRN (21:43)
[2017-01-03 06:18] LABS: ABSOLUTE BASOPHILS # (AUTO) 0.1 10^3/uL (0.0-0.2); ABSOLUTE EOSINOPHILS # (AUTO) 0.3 10^3/uL (0.0-0.6); ABSOLUTE LYMPHOCYTES (AUTO) 1.1 10^3/uL (0.5-4.7); ABSOLUTE MONOCYTES (AUTO) 0.7 10^3/uL (0.1-1.4); ABSOLUTE NEUT (AUTO) 5.4 10^3/uL (1.7-8.2); BASOPHILS % (AUTO) 1.5 % (0-2); EOSINOPHILS % (AUTO) 3.3 % (0-6); HEMATOCRIT 37.3 % (36.0-47.0); HEMOGLOBIN 12.9 g/dL (12.0-15.5); HGB HCT DIFFERENCE 1.4; MEAN CORPUSCULAR HEMOGLOBIN 27.3 pg (27.0-33.4); MEAN CORPUSCULAR HGB CONC 34.5 g/dL (32.0-36.0); MEAN CORPUSCULAR VOLUME 79 fl (80-97); RED BLOOD COUNT 4.71 10^6/uL (3.72-5.28); RED CELL DISTRIBUTION WIDTH 16.9 % (11.5-14.0); SEGMENTED NEUTROPHILS % (AUTO) 71.2 % (42-78); WHITE BLOOD COUNT 7.6 10^3/uL (4.0-10.5)
[2017-01-03 06:30] LABS: ANION GAP 14 (5-19); BLOOD UREA NITROGEN 16 mg/dL (7-20); CALCIUM 9.6 mg/dL (8.4-10.2); CARBON DIOXIDE 25 mmol/L (22-30); CHLORIDE 93 mmol/L (98-107); CREATINE KINASE 43 U/L (30-135); CREATININE RESULT 0.61 mg/dL (0.52-1.25); GLUCOSE 223 mg/dL (75-110); SODIUM 132.1 mmol/L (137-145)
[2017-01-03] MEDS: CLONIDINE HCL 0.1 MG TABLET PO SCH ×3 (06:48→22:46)
[2017-01-03] MEDS: PHENAZOPYRIDINE HCL 100 MG TABLET PO SCH ×3 (06:48→22:46)
[2017-01-03] MEDS: HEPARIN SOD (PORCINE) 5,000 UNIT/ML 1 ML SYRINGE SUBCUT SCH ×3 (06:48→22:46)
[2017-01-03] MEDS: VERAPAMIL HCL 80 MG TABLET PO SCH ×3 (06:48→22:46)
[2017-01-03] MEDS: DOCUSATE SODIUM 100 MG CAPSULE PO SCH (09:06)
[2017-01-03] MEDS: LANSOPRAZOLE 15 MG TAB.RAP.DR PO SCH (09:06)
[2017-01-03] MEDS: ASPIRIN 81 MG TABLET, ENT COATED PO SCH (09:06)
[2017-01-03] MEDS: INSULIN LISPRO 100 UNIT/ML 3 ML VIAL SUBCUT PRN ×3 (09:07→22:57)
[2017-01-03] MEDS: SODIUM CHLORIDE 1 GM TABLET PO SCH ×2 (09:07→17:31)
[2017-01-03] MEDS: PREGABALIN 100 MG CAPSULE PO SCH ×2 (09:07→22:46)
[2017-01-03] MEDS: POTASSIUM CHLORIDE 10 MEQ TABLET.SA PO SCH (09:07)
[2017-01-03] MEDS: INSULIN GLARGINE,HUM.REC.ANLOG 300 UNIT/3 ML INSULN.PEN SUBCUT SCH ×2 (09:07→17:32)
[2017-01-03] MEDS: RAMIPRIL 10 MG CAPSULE PO SCH ×2 (09:07→22:46)
[2017-01-03] MEDS: MAG HYDROX/AL HYDROX/SIMETH SUSP 30 ML UDCUP PO PRN (13:59)
[2017-01-03] MEDS ORDERED: ONDANSETRON HCL INJ/PF 4 MG/2 ML SDV IV PRN (15:30)
[2017-01-03] MEDS: NYSTATIN TOPICAL POWDER 15 GM TP PRN (15:58)
[2017-01-03] MEDS: LIDOCAINE 5% (700 MG) TRANSDERMAL ADH..PATCH TP SCH (17:31)
--- NOTE | 2017-01-03 18:14 | PDOC PROGRESS REPORT ---
Subjective Progress Note for:: 01/03/17 Subjective:: Doing okay. Vaginal itching has resolved with treatment with Diflucan. However complain of itching at the fold of bilateral groin as well as redness. No fever or chills, no nausea or vomiting. Denies dysuria or polyuria, no urinary frequency at this time. Completed Rocephin course 7 days 01/01/17. Physical Exam Vital Signs: Temp Pulse Resp BP Pulse Ox 98.6 F 72 17 134/69 H 95 01/03/17 15:16 01/03/17 15:16 01/03/17 15:16 01/03/17 15:16 01/03/17 15:16 Intake & Output 01/02/17 01/03/17 01/04/17 06:59 06:59 06:59 Intake Total 1193 360 Output Total 2600 1000 Balance -1407 -640 Weight 110.2 kg Exam: GENERAL: This is a well-developed well-nourished female currently in no acute distress. HEART: Regular rate and rhythm. No murmurs, rubs or gallops. LUNGS: Clear to auscultation bilaterally with equal rise and fall of the chest. ABDOMEN: Soft, obese, nontender, nondistended with normoactive bowel sounds EXTREMETIES: No clubbing, cyanosis or edema. 2+ peripheral pulses bilaterally. : Area of redness on moist bilateral groin creases consistent with fungal infection. NEURO: Awake, alert. Cranial nerves II through XII are grossly intact. Results Laboratory Results: 01/03/17 04:47 01/03/17 04:47 01/03/17 01/03/17 04:47 04:47 WBC 7.6 RBC 4.71 Hgb 12.9 Hct 37.3 MCV 79 L MCH 27.3 MCHC 34.5 RDW 16.9 H Plt Count 405 Seg Neutrophils % 71.2 Lymphocytes % 15.0 Monocytes % 9.0 Eosinophils % 3.3 Basophils % 1.5 Absolute Neutrophils 5.4 Absolute Lymphocytes 1.1 Absolute Monocytes 0.7 Absolute Eosinophils 0.3 Absolute Basophils 0.1 Sodium 132.1 L Potassium 5.0 Chloride 93 L Carbon Dioxide 25 Anion Gap 14 BUN 16 Creatinine 0.61 Est GFR ( Amer) > 60 Est GFR (Non-Af Amer) > 60 Glucose 223 H Calcium 9.6 12/25/16 12/25/16 12/26/16 20:22 20:22 00:55 Creatine Kinase 2380 H 2690 H CK-MB (CK-2) 21.00 H Troponin I < 0.012 NT-Pro-B Natriuret Pep 12/26/16 12/26/16 12/26/16 00:55 00:55 00:55 Creatine Kinase Cancelled CK-MB (CK-2) 18.90 H Troponin I < 0.012 NT-Pro-B Natriuret Pep 197 12/26/16 12/26/16 12/27/16 07:56 07:56 07:30 Creatine Kinase 1528 H 492 H CK-MB (CK-2) 12.70 H Troponin I < 0.012 NT-Pro-B Natriuret Pep 01/03/17 04:47 Creatine Kinase 43 CK-MB (CK-2) Troponin I NT-Pro-B Natriuret Pep Impressions: Chest X-Ray 12/25/16 19:01 IMPRESSION: NO ACUTE RADIOGRAPHIC FINDING IN THE CHEST. Hip/Pelvis X-Ray 12/27/16 00:00 IMPRESSION: No acute fracture identified of the right hip Knee X-Ray 12/29/16 00:00 IMPRESSION: CHRONIC DEGENERATIVE CHANGES DESCRIBED. NO ACUTE FINDINGS. Assessment & Plan - Diagnosis (1) Vaginal candidiasis Is this a current diagnosis for this admission?: Yes Plan: likely secondary to antibiotics used for UTI treatment. Improved status post Diflucan 150 mg p.o. 1. We will treat skinfolds groins nystatin powder. Advised to keep area dry. (2) Urinary tract infection Qualifiers: Urinary tract infection type: acute cystitis Hematuria presence: with hematuria Qualified Code(s): N30.01 - Acute cystitis with hematuria Is this a current diagnosis for this admission?: Yes Plan: Status post 7 days course of IV Rocephin for complicated UTI. Urine culture grew E. coli that was pansensitive except resistant to Bactrim. (3) Diabetes mellitus Is this a current diagnosis for this admission?: Yes Plan: Continue Lantus, sliding scale insulin. (4) Falls Is this a current diagnosis for this admission?: Yes Plan: The patient has had multiple falls as an outpatient. She was here from [place] to visit her daughter. She is being followed by physical therapy. She her hip x- ray was negative. Plan is for SNF with rehab and care management working on this. (5) Rhabdomyolysis Qualifiers: Rhabdomyolysis type: non-traumatic Qualified Code(s): M62.82 - Rhabdomyolysis Is this a current diagnosis for this admission?: Yes Plan: Resolved. CPK normal with level today 43. (6) Hyponatremia Is this a current diagnosis for this admission?: Yes Plan: Improved. Hyponatremia likely from polydipsia. The patient reportedly at home refilled a 32 ounce mug with ice multiple times a day. She is currently fluid restricted to 1000 mL a day. On sodium tablets. We will follow-up Chem-7 in a.m.
[2017-01-04] MEDS: HEPARIN SOD (PORCINE) 5,000 UNIT/ML 1 ML SYRINGE SUBCUT SCH ×3 (05:59→23:20)
[2017-01-04] MEDS: PHARMACY COMMUNICATION ORDER MC SCH (06:00)
[2017-01-04] MEDS: CLONIDINE HCL 0.1 MG TABLET PO SCH ×3 (06:05→23:19)
[2017-01-04] MEDS: VERAPAMIL HCL 80 MG TABLET PO SCH ×3 (06:05→23:18)
[2017-01-04] MEDS: LANSOPRAZOLE 15 MG TAB.RAP.DR PO SCH (06:05)
[2017-01-04] MEDS: PHENAZOPYRIDINE HCL 100 MG TABLET PO SCH ×3 (06:05→23:18)
[2017-01-04] MEDS: INSULIN GLARGINE,HUM.REC.ANLOG 300 UNIT/3 ML INSULN.PEN SUBCUT SCH ×2 (08:16→17:45)
[2017-01-04] MEDS: ASPIRIN 81 MG TABLET, ENT COATED PO SCH (11:57)
[2017-01-04] MEDS: POTASSIUM CHLORIDE 10 MEQ TABLET.SA PO SCH (11:58)
[2017-01-04] MEDS: DOCUSATE SODIUM 100 MG CAPSULE PO SCH (11:58)
[2017-01-04] MEDS: PREGABALIN 100 MG CAPSULE PO SCH ×2 (11:58→23:18)
[2017-01-04] MEDS: SODIUM CHLORIDE 1 GM TABLET PO SCH ×2 (11:59→17:18)
[2017-01-04] MEDS: RAMIPRIL 10 MG CAPSULE PO SCH ×2 (11:59→23:19)
[2017-01-04] MEDS: POLYETHYLENE GLYCOL 3350 POWDER 17 GM/1 PACKET PO PRN (12:11)
[2017-01-04] MEDS: NAPROXEN 250 MG TABLET PO PRN (12:11)
[2017-01-04] MEDS: INSULIN LISPRO 100 UNIT/ML 3 ML VIAL SUBCUT PRN ×2 (13:16→23:41)
[2017-01-04] MEDS: FLUCONAZOLE 100 MG TABLET PO SCH (14:36)
--- NOTE | 2017-01-04 14:55 | PDOC PROGRESS REPORT ---
Subjective Progress Note for:: 01/04/17 Subjective:: Complains of itching in the vaginal area. Physical Exam Vital Signs: Temp Pulse Resp BP Pulse Ox 98.4 F 72 12 141/73 H 91 L 01/04/17 12:00 01/04/17 12:00 01/04/17 12:00 01/04/17 12:00 01/04/17 12:00 Intake & Output 01/03/17 01/04/17 01/05/17 06:59 06:59 06:59 Intake Total 1193 1050 540 Output Total 2600 2950 450 Balance -1407 -1900 90 Weight 110.2 kg 111 kg General appearance: PRESENT: no acute distress Eye exam: PRESENT: conjunctiva pink. ABSENT: scleral icterus Ear exam: PRESENT: normal external ear exam Neck exam: ABSENT: JVD Respiratory exam: PRESENT: clear to auscultation grace. ABSENT: rales, rhonchi, wheezes Cardiovascular exam: PRESENT: RRR. ABSENT: diastolic murmur, rubs, systolic murmur GI/Abdominal exam: PRESENT: normal bowel sounds, soft. ABSENT: distended, guarding, mass, organolmegaly, rebound, tenderness Extremities exam: ABSENT: calf tenderness, clubbing, pedal edema Neurological exam: PRESENT: alert, awake, oriented to person, oriented to place , oriented to time, oriented to situation, CN II-XII grossly intact. ABSENT: motor sensory deficit Psychiatric exam: PRESENT: appropriate affect Skin exam: PRESENT: erythema - Erythema in the genital area. Results Laboratory Results: 01/03/17 04:47 01/03/17 04:47 12/25/16 12/25/16 12/26/16 20:22 20:22 00:55 Creatine Kinase 2380 H 2690 H CK-MB (CK-2) 21.00 H Troponin I < 0.012 NT-Pro-B Natriuret Pep 12/26/16 12/26/16 12/26/16 00:55 00:55 00:55 Creatine Kinase Cancelled CK-MB (CK-2) 18.90 H Troponin I < 0.012 NT-Pro-B Natriuret Pep 197 12/26/16 12/26/16 12/27/16 07:56 07:56 07:30 Creatine Kinase 1528 H 492 H CK-MB (CK-2) 12.70 H Troponin I < 0.012 NT-Pro-B Natriuret Pep 01/03/17 04:47 Creatine Kinase 43 CK-MB (CK-2) Troponin I NT-Pro-B Natriuret Pep Impressions: Chest X-Ray 12/25/16 19:01 IMPRESSION: NO ACUTE RADIOGRAPHIC FINDING IN THE CHEST. Hip/Pelvis X-Ray 12/27/16 00:00 IMPRESSION: No acute fracture identified of the right hip Knee X-Ray 12/29/16 00:00 IMPRESSION: CHRONIC DEGENERATIVE CHANGES DESCRIBED. NO ACUTE FINDINGS. Assessment & Plan - Diagnosis (1) Hyponatremia Is this a current diagnosis for this admission?: Yes Plan: This has improved with fluid restriction. Patient had primary polydipsia. (2) Rhabdomyolysis Qualifiers: Rhabdomyolysis type: non-traumatic Qualified Code(s): M62.82 - Rhabdomyolysis Is this a current diagnosis for this admission?: Yes Plan: This has resolved with IV fluids. (3) Diabetes mellitus Is this a current diagnosis for this admission?: Yes Plan: Continue with sliding scale insulin. (4) Falls Is this a current diagnosis for this admission?: Yes Plan: Patient will go to rehab. (5) Hypokalemia Is this a current diagnosis for this admission?: Yes Plan: Resolved. (6) Vaginal candidiasis Is this a current diagnosis for this admission?: Yes Plan: We will give oral daily Diflucan. - Time Time Spent with patient: 25-34 minutes - Inpatient Certification Medical Necessity: Need Close Monitoring Due to Risk of Patient Decompensation - Plan Summary Plan Summary: Awaiting on a nursing home facility bed for rehab.
[2017-01-04] MEDS: LIDOCAINE 5% (700 MG) TRANSDERMAL ADH..PATCH TP SCH (17:17)
[2017-01-04] MEDS ORDERED: DIPHENHYDRAMINE HCL 25 MG CAPSULE PO ONE (23:00)
[2017-01-05] MEDS: LANSOPRAZOLE 15 MG TAB.RAP.DR PO SCH (05:34)
[2017-01-05] MEDS: PHENAZOPYRIDINE HCL 100 MG TABLET PO SCH ×3 (05:34→21:21)
[2017-01-05] MEDS: CLONIDINE HCL 0.1 MG TABLET PO SCH ×3 (05:34→21:22)
[2017-01-05] MEDS: VERAPAMIL HCL 80 MG TABLET PO SCH ×3 (05:34→21:21)
[2017-01-05] MEDS: HEPARIN SOD (PORCINE) 5,000 UNIT/ML 1 ML SYRINGE SUBCUT SCH ×3 (05:34→21:21)
[2017-01-05] MEDS: PHARMACY COMMUNICATION ORDER MC SCH (05:42)
[2017-01-05] MEDS: INSULIN GLARGINE,HUM.REC.ANLOG 300 UNIT/3 ML INSULN.PEN SUBCUT SCH ×2 (08:20→18:33)
[2017-01-05] MEDS: PREGABALIN 100 MG CAPSULE PO SCH ×2 (11:33→21:22)
[2017-01-05] MEDS: ASPIRIN 81 MG TABLET, ENT COATED PO SCH (11:33)
[2017-01-05] MEDS: LORATADINE 10 MG TABLET PO SCH (11:34)
[2017-01-05] MEDS: DOCUSATE SODIUM 100 MG CAPSULE PO SCH (11:34)
[2017-01-05] MEDS: RAMIPRIL 10 MG CAPSULE PO SCH ×2 (11:34→21:21)
[2017-01-05] MEDS: SODIUM CHLORIDE 1 GM TABLET PO SCH ×2 (11:35→18:33)
[2017-01-05] MEDS: POTASSIUM CHLORIDE 10 MEQ TABLET.SA PO SCH (11:35)
--- NOTE | 2017-01-05 12:47 | PDOC PROGRESS REPORT ---
Subjective Progress Note for:: 01/05/17 Subjective:: Reports the itching is better. Physical Exam Vital Signs: Temp Pulse Resp BP Pulse Ox 98.4 F 68 17 147/73 H 95 01/05/17 11:54 01/05/17 11:54 01/05/17 11:54 01/05/17 11:54 01/05/17 11:54 Intake & Output 01/04/17 01/05/17 01/06/17 06:59 06:59 06:59 Intake Total 1050 740 Output Total 2950 1400 Balance -1900 -660 Weight 111 kg 112.3 kg General appearance: PRESENT: no acute distress Eye exam: PRESENT: conjunctiva pink. ABSENT: scleral icterus Mouth exam: PRESENT: moist, tongue midline Neck exam: ABSENT: JVD Respiratory exam: PRESENT: clear to auscultation grace. ABSENT: rales, rhonchi, wheezes Cardiovascular exam: PRESENT: RRR. ABSENT: diastolic murmur, rubs, systolic murmur GI/Abdominal exam: PRESENT: normal bowel sounds, soft. ABSENT: distended, guarding, mass, organolmegaly, rebound, tenderness Extremities exam: ABSENT: calf tenderness, clubbing, pedal edema Neurological exam: PRESENT: alert, awake, oriented to person, oriented to place , oriented to time, oriented to situation, CN II-XII grossly intact. ABSENT: motor sensory deficit Psychiatric exam: PRESENT: appropriate affect Skin exam: PRESENT: dry, intact, warm. ABSENT: cyanosis, rash Results Laboratory Results: 01/03/17 04:47 01/03/17 04:47 12/25/16 12/25/16 12/26/16 20:22 20:22 00:55 Creatine Kinase 2380 H 2690 H CK-MB (CK-2) 21.00 H Troponin I < 0.012 NT-Pro-B Natriuret Pep 12/26/16 12/26/16 12/26/16 00:55 00:55 00:55 Creatine Kinase Cancelled CK-MB (CK-2) 18.90 H Troponin I < 0.012 NT-Pro-B Natriuret Pep 197 12/26/16 12/26/16 12/27/16 07:56 07:56 07:30 Creatine Kinase 1528 H 492 H CK-MB (CK-2) 12.70 H Troponin I < 0.012 NT-Pro-B Natriuret Pep 01/03/17 04:47 Creatine Kinase 43 CK-MB (CK-2) Troponin I NT-Pro-B Natriuret Pep Impressions: Chest X-Ray 12/25/16 19:01 IMPRESSION: NO ACUTE RADIOGRAPHIC FINDING IN THE CHEST. Hip/Pelvis X-Ray 12/27/16 00:00 IMPRESSION: No acute fracture identified of the right hip Knee X-Ray 12/29/16 00:00 IMPRESSION: CHRONIC DEGENERATIVE CHANGES DESCRIBED. NO ACUTE FINDINGS. Assessment & Plan - Diagnosis (1) Hyponatremia Is this a current diagnosis for this admission?: Yes Plan: This has improved with fluid restriction. Patient had primary polydipsia. (2) Rhabdomyolysis Qualifiers: Rhabdomyolysis type: non-traumatic Qualified Code(s): M62.82 - Rhabdomyolysis Is this a current diagnosis for this admission?: Yes Plan: This has resolved with IV fluids. (3) Diabetes mellitus Is this a current diagnosis for this admission?: Yes Plan: Continue with sliding scale insulin. (4) Falls Is this a current diagnosis for this admission?: Yes Plan: Patient will go to rehab. (5) Hypokalemia Is this a current diagnosis for this admission?: Yes Plan: Resolved. (6) Vaginal candidiasis Is this a current diagnosis for this admission?: Yes Plan: We will give oral daily Diflucan. - Time Time Spent with patient: 15-24 minutes - Inpatient Certification Medical Necessity: Need Close Monitoring Due to Risk of Patient Decompensation - Plan Summary Plan Summary: We will go to rehab when a bed becomes available.
[2017-01-05] MEDS: FLUCONAZOLE 100 MG TABLET PO SCH (15:24)
[2017-01-05] MEDS: NYSTATIN TOPICAL POWDER 15 GM TP PRN (15:25)
[2017-01-05] MEDS: MINERAL OIL/PETROLATUM,WHITE CREAM 114 GM TP PRN (15:25)
[2017-01-05] MEDS: LIDOCAINE 5% (700 MG) TRANSDERMAL ADH..PATCH TP SCH (18:33)
[2017-01-05] MEDS: NAPROXEN 250 MG TABLET PO PRN (20:52)
[2017-01-06 05:42] LABS: ANION GAP 12 (5-19); BLOOD UREA NITROGEN 17 mg/dL (7-20); CALCIUM 9.8 mg/dL (8.4-10.2); CARBON DIOXIDE 25 mmol/L (22-30); CHLORIDE 96 mmol/L (98-107); CREATININE RESULT 0.64 mg/dL (0.52-1.25); GLUCOSE 119 mg/dL (75-110); POTASSIUM 4.9 mmol/L (3.6-5.0); SODIUM 132.9 mmol/L (137-145)
[2017-01-06] MEDS: CLONIDINE HCL 0.1 MG TABLET PO SCH ×3 (05:44→21:16)
[2017-01-06] MEDS: HEPARIN SOD (PORCINE) 5,000 UNIT/ML 1 ML SYRINGE SUBCUT SCH ×3 (05:44→21:15)
[2017-01-06] MEDS: LANSOPRAZOLE 15 MG TAB.RAP.DR PO SCH (05:46)
[2017-01-06] MEDS: PHENAZOPYRIDINE HCL 100 MG TABLET PO SCH ×3 (05:46→21:15)
[2017-01-06] MEDS: VERAPAMIL HCL 80 MG TABLET PO SCH ×3 (05:46→21:15)
[2017-01-06] MEDS: PHARMACY COMMUNICATION ORDER MC SCH (05:48)
[2017-01-06] MEDS: INSULIN GLARGINE,HUM.REC.ANLOG 300 UNIT/3 ML INSULN.PEN SUBCUT SCH ×2 (08:16→17:38)
[2017-01-06] MEDS: LORATADINE 10 MG TABLET PO SCH (12:04)
[2017-01-06] MEDS: DOCUSATE SODIUM 100 MG CAPSULE PO SCH (12:04)
[2017-01-06] MEDS: ASPIRIN 81 MG TABLET, ENT COATED PO SCH (12:04)
[2017-01-06] MEDS: SODIUM CHLORIDE 1 GM TABLET PO SCH ×2 (12:05→17:39)
[2017-01-06] MEDS: RAMIPRIL 10 MG CAPSULE PO SCH ×2 (12:05→21:15)
[2017-01-06] MEDS: POTASSIUM CHLORIDE 10 MEQ TABLET.SA PO SCH (12:05)
[2017-01-06] MEDS: PREGABALIN 100 MG CAPSULE PO SCH ×2 (12:05→21:15)
--- NOTE | 2017-01-06 12:59 | PDOC PROGRESS REPORT ---
Subjective Progress Note for:: 01/06/17 Subjective:: Denies any complaints. Physical Exam Vital Signs: Temp Pulse Resp BP Pulse Ox 98.5 F 71 18 138/62 H 92 01/06/17 11:19 01/06/17 11:19 01/06/17 11:19 01/06/17 11:19 01/06/17 11:19 Intake & Output 01/05/17 01/06/17 01/07/17 06:59 06:59 06:59 Intake Total 740 970 Output Total 1400 1950 Balance -660 -980 Weight 112.3 kg 112.3 kg General appearance: PRESENT: no acute distress Eye exam: PRESENT: conjunctiva pink. ABSENT: scleral icterus Mouth exam: PRESENT: moist, tongue midline Neck exam: ABSENT: JVD Respiratory exam: PRESENT: clear to auscultation grace. ABSENT: rales, rhonchi, wheezes Cardiovascular exam: PRESENT: RRR. ABSENT: diastolic murmur, rubs, systolic murmur GI/Abdominal exam: PRESENT: normal bowel sounds, soft. ABSENT: distended, guarding, mass, organolmegaly, rebound, tenderness Extremities exam: ABSENT: calf tenderness, clubbing, pedal edema Neurological exam: PRESENT: alert, awake, oriented to person, oriented to place , oriented to time, oriented to situation, CN II-XII grossly intact. ABSENT: motor sensory deficit Psychiatric exam: PRESENT: appropriate affect Skin exam: PRESENT: dry, intact, warm. ABSENT: cyanosis, rash Results Laboratory Results: 01/03/17 04:47 01/06/17 04:42 01/06/17 04:42 Sodium 132.9 L Potassium 4.9 Chloride 96 L Carbon Dioxide 25 Anion Gap 12 BUN 17 Creatinine 0.64 Est GFR ( Amer) > 60 Est GFR (Non-Af Amer) > 60 Glucose 119 H Calcium 9.8 12/25/16 12/25/16 12/26/16 20:22 20:22 00:55 Creatine Kinase 2380 H 2690 H CK-MB (CK-2) 21.00 H Troponin I < 0.012 NT-Pro-B Natriuret Pep 12/26/16 12/26/16 12/26/16 00:55 00:55 00:55 Creatine Kinase Cancelled CK-MB (CK-2) 18.90 H Troponin I < 0.012 NT-Pro-B Natriuret Pep 197 12/26/16 12/26/16 12/27/16 07:56 07:56 07:30 Creatine Kinase 1528 H 492 H CK-MB (CK-2) 12.70 H Troponin I < 0.012 NT-Pro-B Natriuret Pep 01/03/17 04:47 Creatine Kinase 43 CK-MB (CK-2) Troponin I NT-Pro-B Natriuret Pep Impressions: Chest X-Ray 12/25/16 19:01 IMPRESSION: NO ACUTE RADIOGRAPHIC FINDING IN THE CHEST. Hip/Pelvis X-Ray 12/27/16 00:00 IMPRESSION: No acute fracture identified of the right hip Knee X-Ray 12/29/16 00:00 IMPRESSION: CHRONIC DEGENERATIVE CHANGES DESCRIBED. NO ACUTE FINDINGS. Assessment & Plan - Diagnosis (1) Hyponatremia Is this a current diagnosis for this admission?: Yes Plan: This has improved with fluid restriction. Patient had primary polydipsia. (2) Rhabdomyolysis Qualifiers: Rhabdomyolysis type: non-traumatic Qualified Code(s): M62.82 - Rhabdomyolysis Is this a current diagnosis for this admission?: Yes Plan: This has resolved with IV fluids. (3) Diabetes mellitus Is this a current diagnosis for this admission?: Yes Plan: Continue with sliding scale insulin. (4) Falls Is this a current diagnosis for this admission?: Yes Plan: Patient will go to rehab. (5) Hypokalemia Is this a current diagnosis for this admission?: Yes Plan: Resolved. (6) Vaginal candidiasis Is this a current diagnosis for this admission?: Yes Plan: We will give oral daily Diflucan. - Time Time Spent with patient: 25-34 minutes - Inpatient Certification Medical Necessity: Need Close Monitoring Due to Risk of Patient Decompensation - Plan Summary Plan Summary: Awaiting rehab placement.
[2017-01-06] MEDS: FLUCONAZOLE 100 MG TABLET PO SCH (16:32)
[2017-01-06] MEDS: LIDOCAINE 5% (700 MG) TRANSDERMAL ADH..PATCH TP SCH (17:38)
[2017-01-06] MEDS: POLYVINYL ALCOHOL 1.4% OPH SOLN 15 ML OU PRN (23:39)
[2017-01-07] MEDS: VERAPAMIL HCL 80 MG TABLET PO SCH ×3 (05:30→21:13)
[2017-01-07] MEDS: PHENAZOPYRIDINE HCL 100 MG TABLET PO SCH ×3 (05:30→21:12)
[2017-01-07] MEDS: LANSOPRAZOLE 15 MG TAB.RAP.DR PO SCH (05:31)
[2017-01-07] MEDS: CLONIDINE HCL 0.1 MG TABLET PO SCH ×3 (05:31→21:13)
[2017-01-07] MEDS: HEPARIN SOD (PORCINE) 5,000 UNIT/ML 1 ML SYRINGE SUBCUT SCH ×3 (05:31→21:15)
[2017-01-07] MEDS: PHARMACY COMMUNICATION ORDER MC SCH (05:32)
[2017-01-07] MEDS: INSULIN LISPRO 100 UNIT/ML 3 ML VIAL SUBCUT PRN ×2 (08:31→17:10)
[2017-01-07] MEDS: INSULIN GLARGINE,HUM.REC.ANLOG 300 UNIT/3 ML INSULN.PEN SUBCUT SCH ×2 (08:31→17:20)
--- NOTE | 2017-01-07 10:00 | PDOC PROGRESS REPORT ---
Subjective Progress Note for:: 01/07/17 Subjective:: Denies any complaints. Physical Exam Vital Signs: Temp Pulse Resp BP Pulse Ox 97.7 F 73 18 128/69 H 92 01/07/17 07:32 01/07/17 07:32 01/07/17 07:32 01/07/17 07:32 01/07/17 07:32 Intake & Output 01/06/17 01/07/17 01/08/17 06:59 06:59 06:59 Intake Total 970 1465 Output Total 1950 2100 Balance -980 -635 Weight 112.3 kg 113.1 kg General appearance: PRESENT: no acute distress Eye exam: PRESENT: conjunctiva pink. ABSENT: scleral icterus Neck exam: ABSENT: JVD Respiratory exam: PRESENT: clear to auscultation grace. ABSENT: rales, rhonchi, wheezes Cardiovascular exam: PRESENT: RRR. ABSENT: diastolic murmur, rubs, systolic murmur Neurological exam: PRESENT: alert, awake, oriented to person, oriented to place , oriented to time, oriented to situation, CN II-XII grossly intact. ABSENT: motor sensory deficit Psychiatric exam: PRESENT: appropriate affect Results Laboratory Results: 01/03/17 04:47 01/06/17 04:42 12/25/16 12/25/16 12/26/16 20:22 20:22 00:55 Creatine Kinase 2380 H 2690 H CK-MB (CK-2) 21.00 H Troponin I < 0.012 NT-Pro-B Natriuret Pep 12/26/16 12/26/16 12/26/16 00:55 00:55 00:55 Creatine Kinase Cancelled CK-MB (CK-2) 18.90 H Troponin I < 0.012 NT-Pro-B Natriuret Pep 197 12/26/16 12/26/16 12/27/16 07:56 07:56 07:30 Creatine Kinase 1528 H 492 H CK-MB (CK-2) 12.70 H Troponin I < 0.012 NT-Pro-B Natriuret Pep 01/03/17 04:47 Creatine Kinase 43 CK-MB (CK-2) Troponin I NT-Pro-B Natriuret Pep Impressions: Chest X-Ray 12/25/16 19:01 IMPRESSION: NO ACUTE RADIOGRAPHIC FINDING IN THE CHEST. Hip/Pelvis X-Ray 12/27/16 00:00 IMPRESSION: No acute fracture identified of the right hip Knee X-Ray 12/29/16 00:00 IMPRESSION: CHRONIC DEGENERATIVE CHANGES DESCRIBED. NO ACUTE FINDINGS. Assessment & Plan - Diagnosis (1) Hyponatremia Is this a current diagnosis for this admission?: Yes Plan: This has improved with fluid restriction. Patient had primary polydipsia. (2) Rhabdomyolysis Qualifiers: Rhabdomyolysis type: non-traumatic Qualified Code(s): M62.82 - Rhabdomyolysis Is this a current diagnosis for this admission?: Yes Plan: This has resolved with IV fluids. (3) Diabetes mellitus Is this a current diagnosis for this admission?: Yes Plan: Continue with sliding scale insulin. (4) Falls Is this a current diagnosis for this admission?: Yes Plan: Patient will go to rehab. (5) Hypokalemia Is this a current diagnosis for this admission?: Yes Plan: Resolved. (6) Vaginal candidiasis Is this a current diagnosis for this admission?: Yes Plan: We will give oral daily Diflucan. - Time Time Spent with patient: 25-34 minutes - Inpatient Certification Medical Necessity: Need Close Monitoring Due to Risk of Patient Decompensation - Plan Summary Plan Summary: Awaiting on placement in rehab.
[2017-01-07] MEDS: SODIUM CHLORIDE 1 GM TABLET PO SCH ×2 (10:46→17:09)
[2017-01-07] MEDS: RAMIPRIL 10 MG CAPSULE PO SCH ×2 (10:46→21:12)
[2017-01-07] MEDS: DOCUSATE SODIUM 100 MG CAPSULE PO SCH (10:47)
[2017-01-07] MEDS: POTASSIUM CHLORIDE 10 MEQ TABLET.SA PO SCH (10:47)
[2017-01-07] MEDS: ASPIRIN 81 MG TABLET, ENT COATED PO SCH (10:47)
[2017-01-07] MEDS: PREGABALIN 100 MG CAPSULE PO SCH ×2 (10:48→21:12)
[2017-01-07] MEDS: LORATADINE 10 MG TABLET PO SCH (10:48)
[2017-01-07] MEDS: NAPROXEN 250 MG TABLET PO PRN (10:50)
[2017-01-07] MEDS: POLYETHYLENE GLYCOL 3350 POWDER 17 GM/1 PACKET PO PRN (10:51)
[2017-01-07] MEDS: FLUCONAZOLE 100 MG TABLET PO SCH (14:47)
[2017-01-07] MEDS ORDERED: LIDOCAINE 5% (700 MG) TRANSDERMAL ADH..PATCH TP ONE (15:30)
[2017-01-07] MEDS: LIDOCAINE 5% (700 MG) TRANSDERMAL ADH..PATCH TP SCH (17:21)
[2017-01-07] MEDS: ACETAMINOPHEN 325 MG TABLET PO PRN (22:09)
[2017-01-08] MEDS: HEPARIN SOD (PORCINE) 5,000 UNIT/ML 1 ML SYRINGE SUBCUT SCH ×3 (05:20→21:25)
[2017-01-08] MEDS: PHENAZOPYRIDINE HCL 100 MG TABLET PO SCH ×3 (05:20→21:26)
[2017-01-08] MEDS: VERAPAMIL HCL 80 MG TABLET PO SCH ×3 (05:20→21:26)
[2017-01-08] MEDS: CLONIDINE HCL 0.1 MG TABLET PO SCH ×3 (05:20→21:25)
[2017-01-08] MEDS: LANSOPRAZOLE 15 MG TAB.RAP.DR PO SCH (05:20)
[2017-01-08] MEDS: PHARMACY COMMUNICATION ORDER MC SCH (05:23)
[2017-01-08] MEDS: INSULIN GLARGINE,HUM.REC.ANLOG 300 UNIT/3 ML INSULN.PEN SUBCUT SCH ×2 (08:51→17:11)
[2017-01-08] MEDS: INSULIN LISPRO 100 UNIT/ML 3 ML VIAL SUBCUT PRN ×4 (08:51→21:25)
[2017-01-08] MEDS: PREGABALIN 100 MG CAPSULE PO SCH ×2 (09:37→21:25)
[2017-01-08] MEDS: LORATADINE 10 MG TABLET PO SCH (09:37)
[2017-01-08] MEDS: SODIUM CHLORIDE 1 GM TABLET PO SCH ×2 (09:37→18:27)
[2017-01-08] MEDS: DOCUSATE SODIUM 100 MG CAPSULE PO SCH (09:37)
[2017-01-08] MEDS: POTASSIUM CHLORIDE 10 MEQ TABLET.SA PO SCH (09:37)
[2017-01-08] MEDS: ASPIRIN 81 MG TABLET, ENT COATED PO SCH (09:37)
[2017-01-08] MEDS: RAMIPRIL 10 MG CAPSULE PO SCH ×2 (09:38→21:26)
[2017-01-08] MEDS: MINERAL OIL/PETROLATUM,WHITE CREAM 114 GM TP PRN (09:39)
[2017-01-08 10:56] LABS: APPEARANCE,URINE CLEAR; BILIRUBIN,URINE NEGATIVE (NEGATIVE); GLUCOSE, URINE NEGATIVE (NEGATIVE); KETONES,URINE NEGATIVE (NEGATIVE); LEUKOCYTE ESTERASE,URINE NEGATIVE (NEGATIVE); NITRITE,URINE POSITIVE (NEGATIVE); PROTEIN,URINE NEGATIVE (NEGATIVE); URINE SPECIFIC GRAVITY 1.009
--- NOTE | 2017-01-08 11:07 | PDOC PROGRESS REPORT ---
Subjective Progress Note for:: 01/08/17 Subjective:: Denies any complaints. Physical Exam Vital Signs: Temp Pulse Resp BP Pulse Ox 98.4 F 69 18 119/55 L 92 01/08/17 04:04 01/08/17 07:53 01/08/17 07:53 01/08/17 07:53 01/08/17 07:53 Intake & Output 01/07/17 01/08/17 01/09/17 06:59 06:59 06:59 Intake Total 1465 930 Output Total 2100 2240 Balance -635 -1310 Weight 113.1 kg 113.1 kg General appearance: PRESENT: no acute distress Eye exam: PRESENT: conjunctiva pink. ABSENT: scleral icterus Mouth exam: PRESENT: moist, tongue midline Neck exam: ABSENT: JVD Respiratory exam: PRESENT: clear to auscultation grace. ABSENT: rales, rhonchi, wheezes Cardiovascular exam: PRESENT: RRR. ABSENT: diastolic murmur, rubs, systolic murmur GI/Abdominal exam: PRESENT: normal bowel sounds, soft. ABSENT: distended, guarding, mass, organolmegaly, rebound, tenderness Extremities exam: ABSENT: calf tenderness, clubbing, pedal edema Neurological exam: PRESENT: alert, awake, oriented to person, oriented to place , oriented to time, oriented to situation, CN II-XII grossly intact. ABSENT: motor sensory deficit Psychiatric exam: PRESENT: appropriate affect Skin exam: PRESENT: dry, intact, warm. ABSENT: cyanosis, rash Results Laboratory Results: 01/03/17 04:47 01/06/17 04:42 01/08/17 10:30 Urine Color ORANGE Urine Appearance CLEAR Urine pH 7.0 Ur Specific [place] 1.009 Urine Protein NEGATIVE Urine Glucose (UA) NEGATIVE Urine Ketones NEGATIVE Urine Blood NEGATIVE Urine Nitrite POSITIVE H Ur Leukocyte Esterase NEGATIVE Urine WBC (Auto) 1 Urine RBC (Auto) 0 12/25/16 12/25/16 12/26/16 20:22 20:22 00:55 Creatine Kinase 2380 H 2690 H CK-MB (CK-2) 21.00 H Troponin I < 0.012 NT-Pro-B Natriuret Pep 12/26/16 12/26/16 12/26/16 00:55 00:55 00:55 Creatine Kinase Cancelled CK-MB (CK-2) 18.90 H Troponin I < 0.012 NT-Pro-B Natriuret Pep 197 12/26/16 12/26/16 12/27/16 07:56 07:56 07:30 Creatine Kinase 1528 H 492 H CK-MB (CK-2) 12.70 H Troponin I < 0.012 NT-Pro-B Natriuret Pep 01/03/17 04:47 Creatine Kinase 43 CK-MB (CK-2) Troponin I NT-Pro-B Natriuret Pep Impressions: Chest X-Ray 12/25/16 19:01 IMPRESSION: NO ACUTE RADIOGRAPHIC FINDING IN THE CHEST. Hip/Pelvis X-Ray 12/27/16 00:00 IMPRESSION: No acute fracture identified of the right hip Knee X-Ray 12/29/16 00:00 IMPRESSION: CHRONIC DEGENERATIVE CHANGES DESCRIBED. NO ACUTE FINDINGS. Assessment & Plan - Diagnosis (1) Hyponatremia Is this a current diagnosis for this admission?: Yes Plan: This has improved with fluid restriction. Patient had primary polydipsia. (2) Rhabdomyolysis Qualifiers: Rhabdomyolysis type: non-traumatic Qualified Code(s): M62.82 - Rhabdomyolysis Is this a current diagnosis for this admission?: Yes Plan: This has resolved with IV fluids. (3) Diabetes mellitus Is this a current diagnosis for this admission?: Yes Plan: Continue with sliding scale insulin. (4) Falls Is this a current diagnosis for this admission?: Yes Plan: Patient will go to rehab. (5) Hypokalemia Is this a current diagnosis for this admission?: Yes Plan: Resolved. (6) Vaginal candidiasis Is this a current diagnosis for this admission?: Yes Plan: We will give oral daily Diflucan. - Time Time Spent with patient: 15-24 minutes - Inpatient Certification Medical Necessity: Need Close Monitoring Due to Risk of Patient Decompensation - Plan Summary Plan Summary: Awaiting rehab placement.
[2017-01-08] MEDS: FLUCONAZOLE 100 MG TABLET PO SCH (15:48)
[2017-01-08] MEDS: LIDOCAINE 5% (700 MG) TRANSDERMAL ADH..PATCH TP SCH (17:11)
[2017-01-08] MEDS ORDERED: SODIUM CHLORIDE 1 GM TABLET ONE (17:55)
[2017-01-08] MEDS: ACETAMINOPHEN 325 MG TABLET PO PRN (19:46)
[2017-01-08] MEDS: POLYVINYL ALCOHOL 1.4% OPH SOLN 15 ML OU PRN (21:25)
[2017-01-09] MEDS: ACETAMINOPHEN 325 MG TABLET PO PRN ×2 (04:13→20:11)
[2017-01-09 05:50] LABS: ABSOLUTE EOSINOPHILS # (AUTO) 0.2 10^3/uL (0.0-0.6); ABSOLUTE LYMPHOCYTES (AUTO) 1.3 10^3/uL (0.5-4.7); ABSOLUTE MONOCYTES (AUTO) 0.6 10^3/uL (0.1-1.4); BASOPHILS % (AUTO) 0.4 % (0-2); EOSINOPHILS % (AUTO) 2.8 % (0-6); HEMATOCRIT 35.8 % (36.0-47.0); HEMOGLOBIN 12.1 g/dL (12.0-15.5); HGB HCT DIFFERENCE 0.5; LYMPHOCYTES % (AUTO) 15.8 % (13-45); MEAN CORPUSCULAR HEMOGLOBIN 27.2 pg (27.0-33.4); MEAN CORPUSCULAR HGB CONC 33.8 g/dL (32.0-36.0); MEAN CORPUSCULAR VOLUME 80 fl (80-97); MONOCYTES % (AUTO) 7.9 % (3-13); RED BLOOD COUNT 4.46 10^6/uL (3.72-5.28); RED CELL DISTRIBUTION WIDTH 17.2 % (11.5-14.0); SEGMENTED NEUTROPHILS % (AUTO) 73.1 % (42-78); WHITE BLOOD COUNT 8.2 10^3/uL (4.0-10.5)
[2017-01-09 06:26] LABS: ANION GAP 14 (5-19); BLOOD UREA NITROGEN 20 mg/dL (7-20); CARBON DIOXIDE 25 mmol/L (22-30); CHLORIDE 97 mmol/L (98-107); CREATININE RESULT 0.64 mg/dL (0.52-1.25); GLUCOSE 209 mg/dL (75-110); POTASSIUM 4.9 mmol/L (3.6-5.0); SODIUM 135.7 mmol/L (137-145)
[2017-01-09] MEDS: HEPARIN SOD (PORCINE) 5,000 UNIT/ML 1 ML SYRINGE SUBCUT SCH ×3 (06:46→21:40)
[2017-01-09] MEDS: LANSOPRAZOLE 15 MG TAB.RAP.DR PO SCH (06:46)
[2017-01-09] MEDS: CLONIDINE HCL 0.1 MG TABLET PO SCH ×3 (06:46→21:40)
[2017-01-09] MEDS: PHENAZOPYRIDINE HCL 100 MG TABLET PO SCH ×3 (06:46→21:40)
[2017-01-09] MEDS: VERAPAMIL HCL 80 MG TABLET PO SCH ×3 (06:46→21:40)
[2017-01-09] MEDS: PHARMACY COMMUNICATION ORDER MC SCH (06:48)
[2017-01-09] MEDS: INSULIN LISPRO 100 UNIT/ML 3 ML VIAL SUBCUT PRN ×4 (07:30→21:40)
[2017-01-09] MEDS: INSULIN GLARGINE,HUM.REC.ANLOG 300 UNIT/3 ML INSULN.PEN SUBCUT SCH ×2 (07:30→17:09)
--- NOTE | 2017-01-09 10:40 | PDOC PROGRESS REPORT ---
Subjective Progress Note for:: 01/09/17 Subjective:: Denies any complaints. Physical Exam Vital Signs: Temp Pulse Resp BP Pulse Ox 97.5 F 73 20 124/63 95 01/09/17 08:00 01/09/17 08:00 01/09/17 08:00 01/09/17 08:00 01/09/17 08:00 Intake & Output 01/08/17 01/09/17 01/10/17 06:59 06:59 06:59 Intake Total 930 1455 Output Total 2240 1550 Balance -1310 -95 Weight 113.1 kg 112 kg General appearance: PRESENT: no acute distress Eye exam: PRESENT: conjunctiva pink. ABSENT: scleral icterus Mouth exam: PRESENT: moist, tongue midline Neck exam: ABSENT: JVD Respiratory exam: PRESENT: clear to auscultation grace. ABSENT: rales, rhonchi, wheezes Cardiovascular exam: PRESENT: RRR. ABSENT: diastolic murmur, rubs, systolic murmur GI/Abdominal exam: PRESENT: normal bowel sounds, soft. ABSENT: distended, guarding, mass, organolmegaly, rebound, tenderness Extremities exam: ABSENT: calf tenderness, clubbing, pedal edema Neurological exam: PRESENT: alert, awake, oriented to person, oriented to place , oriented to time, oriented to situation, CN II-XII grossly intact. ABSENT: motor sensory deficit Psychiatric exam: PRESENT: appropriate affect Skin exam: PRESENT: dry, intact, warm. ABSENT: cyanosis, rash Results Laboratory Results: 01/09/17 03:53 01/09/17 03:53 01/08/17 01/09/17 01/09/17 10:30 03:53 03:53 WBC 8.2 RBC 4.46 Hgb 12.1 Hct 35.8 L MCV 80 MCH 27.2 MCHC 33.8 RDW 17.2 H Plt Count 303 Seg Neutrophils % 73.1 Lymphocytes % 15.8 Monocytes % 7.9 Eosinophils % 2.8 Basophils % 0.4 Absolute Neutrophils 6.0 Absolute Lymphocytes 1.3 Absolute Monocytes 0.6 Absolute Eosinophils 0.2 Absolute Basophils 0.0 Sodium 135.7 L Potassium 4.9 Chloride 97 L Carbon Dioxide 25 Anion Gap 14 BUN 20 Creatinine 0.64 Est GFR ( Amer) > 60 Est GFR (Non-Af Amer) > 60 Glucose 209 H Calcium 10.0 Urine Color ORANGE Urine Appearance CLEAR Urine pH 7.0 Ur Specific [place] 1.009 Urine Protein NEGATIVE Urine Glucose (UA) NEGATIVE Urine Ketones NEGATIVE Urine Blood NEGATIVE Urine Nitrite POSITIVE H Ur Leukocyte Esterase NEGATIVE Urine WBC (Auto) 1 Urine RBC (Auto) 0 12/25/16 12/25/16 12/26/16 20:22 20:22 00:55 Creatine Kinase 2380 H 2690 H CK-MB (CK-2) 21.00 H Troponin I < 0.012 NT-Pro-B Natriuret Pep 12/26/16 12/26/16 12/26/16 00:55 00:55 00:55 Creatine Kinase Cancelled CK-MB (CK-2) 18.90 H Troponin I < 0.012 NT-Pro-B Natriuret Pep 197 12/26/16 12/26/16 12/27/16 07:56 07:56 07:30 Creatine Kinase 1528 H 492 H CK-MB (CK-2) 12.70 H Troponin I < 0.012 NT-Pro-B Natriuret Pep 01/03/17 04:47 Creatine Kinase 43 CK-MB (CK-2) Troponin I NT-Pro-B Natriuret Pep Impressions: Chest X-Ray 12/25/16 19:01 IMPRESSION: NO ACUTE RADIOGRAPHIC FINDING IN THE CHEST. Hip/Pelvis X-Ray 12/27/16 00:00 IMPRESSION: No acute fracture identified of the right hip Knee X-Ray 12/29/16 00:00 IMPRESSION: CHRONIC DEGENERATIVE CHANGES DESCRIBED. NO ACUTE FINDINGS. Assessment & Plan - Diagnosis (1) Hyponatremia Is this a current diagnosis for this admission?: Yes Plan: This has improved with fluid restriction. Patient had primary polydipsia. (2) Rhabdomyolysis Qualifiers: Rhabdomyolysis type: non-traumatic Qualified Code(s): M62.82 - Rhabdomyolysis Is this a current diagnosis for this admission?: Yes Plan: This has resolved with IV fluids. (3) Diabetes mellitus Is this a current diagnosis for this admission?: Yes Plan: Continue with sliding scale insulin. (4) Falls Is this a current diagnosis for this admission?: Yes Plan: Patient will go to rehab. (5) Hypokalemia Is this a current diagnosis for this admission?: Yes Plan: Resolved. (6) Vaginal candidiasis Is this a current diagnosis for this admission?: Yes Plan: We will give oral daily Diflucan. - Time Time Spent with patient: 25-34 minutes - Inpatient Certification Medical Necessity: Need Close Monitoring Due to Risk of Patient Decompensation - Plan Summary Plan Summary: Awaiting rehab placement.
[2017-01-09] MEDS: PREGABALIN 100 MG CAPSULE PO SCH ×2 (10:44→21:40)
[2017-01-09] MEDS: LORATADINE 10 MG TABLET PO SCH (10:44)
[2017-01-09] MEDS: ASPIRIN 81 MG TABLET, ENT COATED PO SCH (10:44)
[2017-01-09] MEDS: POTASSIUM CHLORIDE 10 MEQ TABLET.SA PO SCH (10:44)
[2017-01-09] MEDS: DOCUSATE SODIUM 100 MG CAPSULE PO SCH (10:44)
[2017-01-09] MEDS: RAMIPRIL 10 MG CAPSULE PO SCH ×2 (10:45→21:40)
[2017-01-09] MEDS: MINERAL OIL/PETROLATUM,WHITE CREAM 114 GM TP PRN (10:48)
[2017-01-09] MEDS: SODIUM CHLORIDE 1 GM TABLET PO SCH ×2 (11:01→17:09)
[2017-01-09] MEDS: FLUCONAZOLE 100 MG TABLET PO SCH (15:39)
[2017-01-09] MEDS: NYSTATIN TOPICAL POWDER 15 GM TP PRN (15:50)
[2017-01-09] MEDS: LIDOCAINE 5% (700 MG) TRANSDERMAL ADH..PATCH TP SCH (17:09)
[2017-01-10] MEDS: NAPROXEN 250 MG TABLET PO PRN (02:24)
[2017-01-10] MEDS: LANSOPRAZOLE 15 MG TAB.RAP.DR PO SCH (05:50)
[2017-01-10] MEDS: HEPARIN SOD (PORCINE) 5,000 UNIT/ML 1 ML SYRINGE SUBCUT SCH ×3 (05:50→22:29)
[2017-01-10] MEDS: PHENAZOPYRIDINE HCL 100 MG TABLET PO SCH ×3 (05:51→22:29)
[2017-01-10] MEDS: CLONIDINE HCL 0.1 MG TABLET PO SCH ×3 (05:51→22:29)
[2017-01-10] MEDS: VERAPAMIL HCL 80 MG TABLET PO SCH ×3 (05:51→22:29)
[2017-01-10] MEDS: PHARMACY COMMUNICATION ORDER MC SCH (06:31)
[2017-01-10] MEDS: INSULIN LISPRO 100 UNIT/ML 3 ML VIAL SUBCUT PRN ×3 (08:25→22:29)
[2017-01-10] MEDS: ACETAMINOPHEN 325 MG TABLET PO PRN ×2 (08:35→20:01)
[2017-01-10] MEDS: INSULIN GLARGINE,HUM.REC.ANLOG 300 UNIT/3 ML INSULN.PEN SUBCUT SCH ×2 (09:07→17:24)
[2017-01-10] MEDS: ASPIRIN 81 MG TABLET, ENT COATED PO SCH (09:07)
[2017-01-10] MEDS: POTASSIUM CHLORIDE 10 MEQ TABLET.SA PO SCH (09:07)
[2017-01-10] MEDS: LORATADINE 10 MG TABLET PO SCH (09:07)
[2017-01-10] MEDS: PREGABALIN 100 MG CAPSULE PO SCH ×2 (09:07→22:29)
[2017-01-10] MEDS: DOCUSATE SODIUM 100 MG CAPSULE PO SCH (09:07)
[2017-01-10] MEDS: SODIUM CHLORIDE 1 GM TABLET PO SCH ×2 (09:09→17:24)
[2017-01-10] MEDS: RAMIPRIL 10 MG CAPSULE PO SCH ×2 (09:09→22:29)
--- NOTE | 2017-01-10 11:12 | PDOC PROGRESS REPORT ---
Subjective Progress Note for:: 01/10/17 Subjective:: Complains of some difficulty with ambulation. Physical Exam Vital Signs: Temp Pulse Resp BP Pulse Ox 97.6 F 71 18 113/61 91 L 01/10/17 07:26 01/10/17 07:26 01/10/17 07:26 01/10/17 07:26 01/10/17 07:26 Intake & Output 01/09/17 01/10/17 01/11/17 06:59 06:59 06:59 Intake Total 1455 970 Output Total 1550 650 Balance -95 320 Weight 112 kg 112.6 kg General appearance: PRESENT: no acute distress Eye exam: PRESENT: conjunctiva pink. ABSENT: scleral icterus Mouth exam: PRESENT: moist, tongue midline Neck exam: ABSENT: JVD Respiratory exam: PRESENT: clear to auscultation grace. ABSENT: rales, rhonchi, wheezes Cardiovascular exam: PRESENT: RRR. ABSENT: diastolic murmur, rubs, systolic murmur GI/Abdominal exam: PRESENT: normal bowel sounds, soft. ABSENT: distended, guarding, mass, organolmegaly, rebound, tenderness Extremities exam: ABSENT: calf tenderness, clubbing, pedal edema Neurological exam: PRESENT: alert, awake, oriented to person, oriented to place , oriented to time, oriented to situation, CN II-XII grossly intact. ABSENT: motor sensory deficit Psychiatric exam: PRESENT: appropriate affect Skin exam: PRESENT: dry, intact, warm. ABSENT: cyanosis, rash Results Laboratory Results: 01/09/17 03:53 01/09/17 03:53 12/25/16 12/25/16 12/26/16 20:22 20:22 00:55 Creatine Kinase 2380 H 2690 H CK-MB (CK-2) 21.00 H Troponin I < 0.012 NT-Pro-B Natriuret Pep 12/26/16 12/26/16 12/26/16 00:55 00:55 00:55 Creatine Kinase Cancelled CK-MB (CK-2) 18.90 H Troponin I < 0.012 NT-Pro-B Natriuret Pep 197 12/26/16 12/26/16 12/27/16 07:56 07:56 07:30 Creatine Kinase 1528 H 492 H CK-MB (CK-2) 12.70 H Troponin I < 0.012 NT-Pro-B Natriuret Pep 01/03/17 04:47 Creatine Kinase 43 CK-MB (CK-2) Troponin I NT-Pro-B Natriuret Pep Impressions: Chest X-Ray 12/25/16 19:01 IMPRESSION: NO ACUTE RADIOGRAPHIC FINDING IN THE CHEST. Hip/Pelvis X-Ray 12/27/16 00:00 IMPRESSION: No acute fracture identified of the right hip Knee X-Ray 12/29/16 00:00 IMPRESSION: CHRONIC DEGENERATIVE CHANGES DESCRIBED. NO ACUTE FINDINGS. Assessment & Plan - Diagnosis (1) Hyponatremia Is this a current diagnosis for this admission?: Yes Plan: This has improved with fluid restriction. Patient had primary polydipsia. (2) Rhabdomyolysis Qualifiers: Rhabdomyolysis type: non-traumatic Qualified Code(s): M62.82 - Rhabdomyolysis Is this a current diagnosis for this admission?: Yes Plan: This has resolved with IV fluids. (3) Diabetes mellitus Is this a current diagnosis for this admission?: Yes Plan: Continue with sliding scale insulin. (4) Falls Is this a current diagnosis for this admission?: Yes Plan: Patient will go to rehab. (5) Hypokalemia Is this a current diagnosis for this admission?: Yes Plan: Resolved. (6) Vaginal candidiasis Is this a current diagnosis for this admission?: Yes Plan: We have given oral daily Diflucan. This has resolved and we will DC the Diflucan - Time Time Spent with patient: 25-34 minutes - Inpatient Certification Medical Necessity: Need Close Monitoring Due to Risk of Patient Decompensation - Plan Summary Plan Summary: We are awaiting rehab bed to become available.
[2017-01-10] MEDS: LIDOCAINE 5% (700 MG) TRANSDERMAL ADH..PATCH TP SCH (17:24)
[2017-01-11] MEDS: NAPROXEN 250 MG TABLET PO PRN (00:11)
[2017-01-11] MEDS: PHENAZOPYRIDINE HCL 100 MG TABLET PO SCH ×3 (05:27→22:04)
[2017-01-11] MEDS: LANSOPRAZOLE 15 MG TAB.RAP.DR PO SCH (05:27)
[2017-01-11] MEDS: CLONIDINE HCL 0.1 MG TABLET PO SCH ×3 (05:28→22:04)
[2017-01-11] MEDS: VERAPAMIL HCL 80 MG TABLET PO SCH ×3 (05:28→22:05)
[2017-01-11] MEDS: HEPARIN SOD (PORCINE) 5,000 UNIT/ML 1 ML SYRINGE SUBCUT SCH ×3 (05:28→22:04)
[2017-01-11 05:58] LABS: ANION GAP 13 (5-19); BLOOD UREA NITROGEN 20 mg/dL (7-20); CALCIUM 9.8 mg/dL (8.4-10.2); CARBON DIOXIDE 26 mmol/L (22-30); CHLORIDE 99 mmol/L (98-107); CREATININE RESULT 0.69 mg/dL (0.52-1.25); GLUCOSE 108 mg/dL (75-110); POTASSIUM 4.7 mmol/L (3.6-5.0); SODIUM 137.9 mmol/L (137-145)
[2017-01-11] MEDS: PHARMACY COMMUNICATION ORDER MC SCH (06:54)
[2017-01-11] MEDS: INSULIN GLARGINE,HUM.REC.ANLOG 300 UNIT/3 ML INSULN.PEN SUBCUT SCH ×2 (08:02→18:00)
[2017-01-11] MEDS: PREGABALIN 100 MG CAPSULE PO SCH ×2 (10:42→22:04)
[2017-01-11] MEDS: SODIUM CHLORIDE 1 GM TABLET PO SCH ×2 (10:42→17:59)
[2017-01-11] MEDS: DOCUSATE SODIUM 100 MG CAPSULE PO SCH (10:42)
[2017-01-11] MEDS: RAMIPRIL 10 MG CAPSULE PO SCH ×2 (10:42→22:04)
[2017-01-11] MEDS: ASPIRIN 81 MG TABLET, ENT COATED PO SCH (10:42)
[2017-01-11] MEDS: LORATADINE 10 MG TABLET PO SCH (10:42)
[2017-01-11] MEDS: POTASSIUM CHLORIDE 10 MEQ TABLET.SA PO SCH (10:42)
[2017-01-11] MEDS: MINERAL OIL/PETROLATUM,WHITE CREAM 114 GM TP PRN (10:55)
[2017-01-11] MEDS: ACETAMINOPHEN 325 MG TABLET PO PRN ×2 (11:03→22:04)
[2017-01-11] MEDS: INSULIN LISPRO 100 UNIT/ML 3 ML VIAL SUBCUT PRN ×2 (12:08→22:04)
--- NOTE | 2017-01-11 16:27 | PDOC PROGRESS REPORT ---
Subjective Progress Note for:: 01/11/17 Subjective:: This is a follow-up visit for hyponatremia. The patient feels good this afternoon. No acute events overnight the patient still remains here because of placement issues. I have had a long detailed conversation with the patient's family. And allow them to events their frustrations with not having been placed. Apparently the patient did have a bed at [facility] that the daughter declined. They wish to resubmit to [facility] with the latest PT notes. The patient was able to ambulate over 200 feet today. I have cautioned them that they may not qualify. Physical Exam Vital Signs: Temp Pulse Resp BP Pulse Ox 97.6 F 70 17 119/65 95 01/11/17 11:16 01/11/17 11:16 01/11/17 11:16 01/11/17 11:16 01/11/17 11:16 Intake & Output 01/10/17 01/11/17 01/12/17 06:59 06:59 06:59 Intake Total 970 920 Output Total 650 1600 Balance 320 -680 Weight 112.6 kg 110.5 kg GENERAL: This is a well-developed well-nourished obese white female resting in bed currently in no acute distress. She is tearful at the bedside because she feels as though she has no place to go when she leaves the hospital. HEART: Regular rate and rhythm. No murmurs, rubs or gallops. LUNGS: Clear to auscultation bilaterally with equal rise and fall of the chest. ABDOMEN: Soft, obese, nontender, nondistended with normoactive bowel sounds EXTREMETIES: No clubbing, cyanosis or edema. 2+ peripheral pulses bilaterally. NEURO: Awake, alert. Cranial nerves II through XII are grossly intact. She is able to express her sadness. Results Laboratory Results: 01/09/17 03:53 01/11/17 05:03 01/11/17 05:03 Sodium 137.9 Potassium 4.7 Chloride 99 Carbon Dioxide 26 Anion Gap 13 BUN 20 Creatinine 0.69 Est GFR ( Amer) > 60 Est GFR (Non-Af Amer) > 60 Glucose 108 Calcium 9.8 12/25/16 12/25/16 12/26/16 20:22 20:22 00:55 Creatine Kinase 2380 H 2690 H CK-MB (CK-2) 21.00 H Troponin I < 0.012 NT-Pro-B Natriuret Pep 12/26/16 12/26/16 12/26/16 00:55 00:55 00:55 Creatine Kinase Cancelled CK-MB (CK-2) 18.90 H Troponin I < 0.012 NT-Pro-B Natriuret Pep 197 12/26/16 12/26/16 12/27/16 07:56 07:56 07:30 Creatine Kinase 1528 H 492 H CK-MB (CK-2) 12.70 H Troponin I < 0.012 NT-Pro-B Natriuret Pep 01/03/17 04:47 Creatine Kinase 43 CK-MB (CK-2) Troponin I NT-Pro-B Natriuret Pep Impressions: Chest X-Ray 12/25/16 19:01 IMPRESSION: NO ACUTE RADIOGRAPHIC FINDING IN THE CHEST. Hip/Pelvis X-Ray 12/27/16 00:00 IMPRESSION: No acute fracture identified of the right hip Knee X-Ray 12/29/16 00:00 IMPRESSION: CHRONIC DEGENERATIVE CHANGES DESCRIBED. NO ACUTE FINDINGS. Assessment & Plan - Diagnosis (1) Hyponatremia Is this a current diagnosis for this admission?: Yes Plan: Likely from polydipsia. She is currently fluid restricted to 1000 mL a day. Continue sodium tablets. Continue broad diet. Sodium is normal (2) Hypokalemia Is this a current diagnosis for this admission?: Yes Plan: Replaced and resolved. (3) Hypomagnesemia Is this a current diagnosis for this admission?: Yes Plan: Replaced (4) Rhabdomyolysis Qualifiers: Rhabdomyolysis type: non-traumatic Qualified Code(s): M62.82 - Rhabdomyolysis Is this a current diagnosis for this admission?: Yes Plan: Improved. (5) Urinary tract infection Qualifiers: Urinary tract infection type: acute cystitis Hematuria presence: with hematuria Qualified Code(s): N30.01 - Acute cystitis with hematuria Is this a current diagnosis for this admission?: Yes Plan: Continue Rocephin. Because this is occurring in an elderly patient I do consider this to be a complicated UTI and duration of treatment should be 7 days. (6) Falls Is this a current diagnosis for this admission?: Yes Plan: The patient has had multiple falls as an outpatient. She has not been seen by her primary care physician in [place]. She is being followed by physical therapy. She her hip x-ray was negative. The patient was also seen for her Charcot foot by the general surgeon who recommended wraps. Patient was seen by physical therapy today. [facility] was recommended but the patient did not go to [facility]. The latest physical therapy notes state that the patient ambulated 200 feet today. Likely she will have to be discharged home with home health versus outpatient PT. (7) Diabetes mellitus Is this a current diagnosis for this admission?: Yes Plan: Continue sliding scale insulin and Lantus. - Time Time Spent with patient: 25-34 minutes - Inpatient Certification Medical Necessity: Need Close Monitoring Due to Risk of Patient Decompensation
[2017-01-11] MEDS: LIDOCAINE 5% (700 MG) TRANSDERMAL ADH..PATCH TP SCH (18:00)
[2017-01-11] MEDS ORDERED: NYSTATIN TOPICAL POWDER 15 GM TP ONE (18:00)
[2017-01-12] MEDS: NAPROXEN 250 MG TABLET PO PRN (01:03)
[2017-01-12] MEDS: IPRATROPIUM/ALBUTEROL 0.5-2.5 MG/3 ML AMPUL NEB PRN ×2 (01:55→09:06)
[2017-01-12] MEDS: LANSOPRAZOLE 15 MG TAB.RAP.DR PO SCH (05:40)
[2017-01-12] MEDS: PHENAZOPYRIDINE HCL 100 MG TABLET PO SCH ×3 (05:40→22:38)
[2017-01-12] MEDS: VERAPAMIL HCL 80 MG TABLET PO SCH ×3 (05:40→22:37)
[2017-01-12] MEDS: CLONIDINE HCL 0.1 MG TABLET PO SCH ×3 (05:40→22:36)
[2017-01-12] MEDS: HEPARIN SOD (PORCINE) 5,000 UNIT/ML 1 ML SYRINGE SUBCUT SCH ×3 (05:40→22:36)
[2017-01-12] MEDS: PHARMACY COMMUNICATION ORDER MC SCH (05:41)
[2017-01-12] MEDS: INSULIN GLARGINE,HUM.REC.ANLOG 300 UNIT/3 ML INSULN.PEN SUBCUT SCH ×2 (09:36→17:14)
[2017-01-12] MEDS: LORATADINE 10 MG TABLET PO SCH (10:30)
[2017-01-12] MEDS: RAMIPRIL 10 MG CAPSULE PO SCH ×2 (10:30→22:38)
[2017-01-12] MEDS: PREGABALIN 100 MG CAPSULE PO SCH ×2 (10:30→22:36)
[2017-01-12] MEDS: SODIUM CHLORIDE 1 GM TABLET PO SCH ×2 (10:30→17:30)
[2017-01-12] MEDS: POTASSIUM CHLORIDE 10 MEQ TABLET.SA PO SCH (10:30)
[2017-01-12] MEDS: ASPIRIN 81 MG TABLET, ENT COATED PO SCH (10:30)
[2017-01-12] MEDS: DOCUSATE SODIUM 100 MG CAPSULE PO SCH (10:30)
[2017-01-12] MEDS: INSULIN LISPRO 100 UNIT/ML 3 ML VIAL SUBCUT PRN ×3 (13:00→22:43)
[2017-01-12] MEDS: NYSTATIN TOPICAL POWDER 15 GM TP SCH (13:02)
--- NOTE | 2017-01-12 17:08 | PDOC PROGRESS REPORT ---
Subjective Progress Note for:: 01/12/17 Subjective:: This is a follow-up visit for hyponatremia. The patient feels good this afternoon. No acute events overnight the patient still remains here because of placement issues. I have had a long detailed conversation with the patient's family again. Family is up an opportunity to meet with the patient advocates, the clinical nursing assistant and case management today. They have been declined by [facility] and currently being evaluated by [facility]. The patient daughter has withdrawn her request from [facility] Physical Exam Vital Signs: Temp Pulse Resp BP Pulse Ox 97.7 F 90 18 136/72 H 96 01/12/17 15:08 01/12/17 15:08 01/12/17 15:08 01/12/17 15:08 01/12/17 15:08 Intake & Output 01/11/17 01/12/17 01/13/17 06:59 06:59 06:59 Intake Total 920 760 597 Output Total 1600 1500 775 Balance -680 -740 -178 Weight 110.5 kg 110.7 kg GENERAL: This is a well-developed well-nourished obese white female resting in bed currently in no acute distress. HEART: Regular rate and rhythm. No murmurs, rubs or gallops. LUNGS: Clear to auscultation bilaterally with equal rise and fall of the chest. ABDOMEN: Soft, obese, nontender, nondistended with normoactive bowel sounds EXTREMETIES: No clubbing, cyanosis or edema. 2+ peripheral pulses bilaterally. NEURO: Awake, alert. Cranial nerves II through XII are grossly intact. Results Laboratory Results: 01/09/17 03:53 01/11/17 05:03 12/25/16 12/25/16 12/26/16 20:22 20:22 00:55 Creatine Kinase 2380 H 2690 H CK-MB (CK-2) 21.00 H Troponin I < 0.012 NT-Pro-B Natriuret Pep 12/26/16 12/26/16 12/26/16 00:55 00:55 00:55 Creatine Kinase Cancelled CK-MB (CK-2) 18.90 H Troponin I < 0.012 NT-Pro-B Natriuret Pep 197 12/26/16 12/26/16 12/27/16 07:56 07:56 07:30 Creatine Kinase 1528 H 492 H CK-MB (CK-2) 12.70 H Troponin I < 0.012 NT-Pro-B Natriuret Pep 01/03/17 04:47 Creatine Kinase 43 CK-MB (CK-2) Troponin I NT-Pro-B Natriuret Pep Impressions: Chest X-Ray 12/25/16 19:01 IMPRESSION: NO ACUTE RADIOGRAPHIC FINDING IN THE CHEST. Hip/Pelvis X-Ray 12/27/16 00:00 IMPRESSION: No acute fracture identified of the right hip Knee X-Ray 12/29/16 00:00 IMPRESSION: CHRONIC DEGENERATIVE CHANGES DESCRIBED. NO ACUTE FINDINGS. Assessment & Plan - Diagnosis (1) Hyponatremia Is this a current diagnosis for this admission?: Yes (2) Hypokalemia Is this a current diagnosis for this admission?: Yes (3) Hypomagnesemia Is this a current diagnosis for this admission?: Yes (4) Rhabdomyolysis Qualifiers: Rhabdomyolysis type: non-traumatic Qualified Code(s): M62.82 - Rhabdomyolysis Is this a current diagnosis for this admission?: Yes (5) Urinary tract infection Qualifiers: Urinary tract infection type: acute cystitis Hematuria presence: with hematuria Qualified Code(s): N30.01 - Acute cystitis with hematuria Is this a current diagnosis for this admission?: Yes (6) Falls Is this a current diagnosis for this admission?: Yes (7) Diabetes mellitus Is this a current diagnosis for this admission?: Yes
[2017-01-12] MEDS: LIDOCAINE 5% (700 MG) TRANSDERMAL ADH..PATCH TP SCH (17:13)
[2017-01-12] MEDS: POLYETHYLENE GLYCOL 3350 POWDER 17 GM/1 PACKET PO PRN (20:10)
[2017-01-12] MEDS: ACETAMINOPHEN 325 MG TABLET PO PRN (20:29)
[2017-01-13] MEDS: NAPROXEN 250 MG TABLET PO PRN ×2 (03:35→20:53)
[2017-01-13] MEDS: HEPARIN SOD (PORCINE) 5,000 UNIT/ML 1 ML SYRINGE SUBCUT SCH ×3 (05:28→22:39)
[2017-01-13] MEDS: VERAPAMIL HCL 80 MG TABLET PO SCH ×3 (05:29→22:39)
[2017-01-13] MEDS: CLONIDINE HCL 0.1 MG TABLET PO SCH ×3 (05:29→22:42)
[2017-01-13] MEDS: LANSOPRAZOLE 15 MG TAB.RAP.DR PO SCH (05:29)
[2017-01-13] MEDS: PHENAZOPYRIDINE HCL 100 MG TABLET PO SCH ×3 (05:29→22:42)
[2017-01-13] MEDS: PHARMACY COMMUNICATION ORDER MC SCH (08:28)
[2017-01-13] MEDS: INSULIN GLARGINE,HUM.REC.ANLOG 300 UNIT/3 ML INSULN.PEN SUBCUT SCH ×2 (09:22→17:49)
[2017-01-13] MEDS: ASPIRIN 81 MG TABLET, ENT COATED PO SCH (09:24)
[2017-01-13] MEDS: RAMIPRIL 10 MG CAPSULE PO SCH ×2 (09:24→22:42)
[2017-01-13] MEDS: POTASSIUM CHLORIDE 10 MEQ TABLET.SA PO SCH (09:24)
[2017-01-13] MEDS: SODIUM CHLORIDE 1 GM TABLET PO SCH ×2 (09:25→17:50)
[2017-01-13] MEDS: DOCUSATE SODIUM 100 MG CAPSULE PO SCH (09:25)
[2017-01-13] MEDS: PREGABALIN 100 MG CAPSULE PO SCH ×2 (09:25→22:39)
[2017-01-13] MEDS: LORATADINE 10 MG TABLET PO SCH (09:26)
[2017-01-13] MEDS: NYSTATIN TOPICAL POWDER 15 GM TP SCH (09:26)
[2017-01-13] MEDS: ACETAMINOPHEN 325 MG TABLET PO PRN (11:24)
[2017-01-13] MEDS: INSULIN LISPRO 100 UNIT/ML 3 ML VIAL SUBCUT PRN ×3 (14:16→22:42)
[2017-01-13] MEDS: LIDOCAINE 5% (700 MG) TRANSDERMAL ADH..PATCH TP SCH (17:49)
--- NOTE | 2017-01-13 18:56 | PDOC PROGRESS REPORT ---
Subjective Progress Note for:: 01/13/17 Subjective:: This is a follow-up visit for hyponatremia. The patient feels good this afternoon. No acute events overnight the patient still remains here because of placement issues. Physical Exam Vital Signs: Temp Pulse Resp BP Pulse Ox 97.3 F 69 18 119/60 95 01/13/17 16:01 01/13/17 16:01 01/13/17 16:01 01/13/17 16:01 01/13/17 16:01 Intake & Output 01/12/17 01/13/17 01/14/17 06:59 06:59 06:59 Intake Total 760 1050 739 Output Total 6143 076 8012 Balance -740 275 -436 Weight 110.7 kg 111.2 kg GENERAL: This is a well-developed well-nourished obese white female resting in bed currently in no acute distress. HEART: Regular rate and rhythm. No murmurs, rubs or gallops. LUNGS: Clear to auscultation bilaterally with equal rise and fall of the chest. ABDOMEN: Soft, obese, nontender, nondistended with normoactive bowel sounds EXTREMETIES: No clubbing, cyanosis. trace edema at the left ankle 2+ peripheral pulses bilaterally. NEURO: Awake, alert. Cranial nerves II through XII are grossly intact. Results Laboratory Results: 01/09/17 03:53 01/11/17 05:03 12/25/16 12/25/16 12/26/16 20:22 20:22 00:55 Creatine Kinase 2380 H 2690 H CK-MB (CK-2) 21.00 H Troponin I < 0.012 NT-Pro-B Natriuret Pep 12/26/16 12/26/16 12/26/16 00:55 00:55 00:55 Creatine Kinase Cancelled CK-MB (CK-2) 18.90 H Troponin I < 0.012 NT-Pro-B Natriuret Pep 197 12/26/16 12/26/16 12/27/16 07:56 07:56 07:30 Creatine Kinase 1528 H 492 H CK-MB (CK-2) 12.70 H Troponin I < 0.012 NT-Pro-B Natriuret Pep 01/03/17 04:47 Creatine Kinase 43 CK-MB (CK-2) Troponin I NT-Pro-B Natriuret Pep Impressions: Chest X-Ray 12/25/16 19:01 IMPRESSION: NO ACUTE RADIOGRAPHIC FINDING IN THE CHEST. Hip/Pelvis X-Ray 12/27/16 00:00 IMPRESSION: No acute fracture identified of the right hip Knee X-Ray 12/29/16 00:00 IMPRESSION: CHRONIC DEGENERATIVE CHANGES DESCRIBED. NO ACUTE FINDINGS. Assessment & Plan - Diagnosis (1) Hyponatremia Is this a current diagnosis for this admission?: Yes Plan: Likely from polydipsia. She is currently fluid restricted to 1000 mL a day. Continue sodium tablets. Continue broad diet. Sodium is normal (2) Hypokalemia Is this a current diagnosis for this admission?: Yes Plan: Replaced and resolved. (3) Hypomagnesemia Is this a current diagnosis for this admission?: Yes Plan: Replaced (4) Rhabdomyolysis Qualifiers: Rhabdomyolysis type: non-traumatic Qualified Code(s): M62.82 - Rhabdomyolysis Is this a current diagnosis for this admission?: Yes Plan: Resolved (5) Urinary tract infection Qualifiers: Urinary tract infection type: acute cystitis Hematuria presence: with hematuria Qualified Code(s): N30.01 - Acute cystitis with hematuria Is this a current diagnosis for this admission?: Yes Plan: Status post 7 days of Rocephin (6) Falls Is this a current diagnosis for this admission?: Yes Plan: The patient has had multiple falls as an outpatient. She has not been seen by her primary care physician in [place]. She is being followed by physical therapy. She her hip x-ray was negative. The patient was also seen for her Charcot foot by the general surgeon who recommended wraps. Patient was seen by physical therapy today. [facility] was recommended but the patient did not go to [facility]. The latest physical therapy notes state that the patient 200+ feet. Likely she will have to be discharged home with home health versus outpatient PT. still waiting to hear back from SNF options (7) Diabetes mellitus Is this a current diagnosis for this admission?: Yes Plan: Continue sliding scale insulin and Lantus. - Time Time Spent with patient: 15-24 minutes
[2017-01-14] MEDS: HEPARIN SOD (PORCINE) 5,000 UNIT/ML 1 ML SYRINGE SUBCUT SCH ×2 (06:02→15:16)
[2017-01-14] MEDS: LANSOPRAZOLE 15 MG TAB.RAP.DR PO SCH (06:02)
[2017-01-14] MEDS: PHENAZOPYRIDINE HCL 100 MG TABLET PO SCH ×2 (06:02→15:16)
[2017-01-14] MEDS: VERAPAMIL HCL 80 MG TABLET PO SCH ×2 (06:02→15:16)
[2017-01-14] MEDS: CLONIDINE HCL 0.1 MG TABLET PO SCH ×2 (06:02→15:16)
[2017-01-14] MEDS: NAPROXEN 250 MG TABLET PO PRN ×2 (06:03→11:44)
[2017-01-14] MEDS: PHARMACY COMMUNICATION ORDER MC SCH (06:20)
[2017-01-14] MEDS: INSULIN GLARGINE,HUM.REC.ANLOG 300 UNIT/3 ML INSULN.PEN SUBCUT SCH (09:17)
[2017-01-14] MEDS: ASPIRIN 81 MG TABLET, ENT COATED PO SCH (09:18)
[2017-01-14] MEDS: DOCUSATE SODIUM 100 MG CAPSULE PO SCH (09:18)
[2017-01-14] MEDS: POTASSIUM CHLORIDE 10 MEQ TABLET.SA PO SCH (09:18)
[2017-01-14] MEDS: LORATADINE 10 MG TABLET PO SCH (09:18)
[2017-01-14] MEDS: PREGABALIN 100 MG CAPSULE PO SCH (09:18)
[2017-01-14] MEDS: ACETAMINOPHEN 325 MG TABLET PO PRN (09:18)
[2017-01-14] MEDS: SODIUM CHLORIDE 1 GM TABLET PO SCH (09:19)
[2017-01-14] MEDS: NYSTATIN TOPICAL POWDER 15 GM TP SCH (09:19)
[2017-01-14] MEDS: RAMIPRIL 10 MG CAPSULE PO SCH (11:44)
[2017-01-14] MEDS: IPRATROPIUM/ALBUTEROL 0.5-2.5 MG/3 ML AMPUL NEB PRN (14:08)
[2017-01-14 14:23] VITALS: BP 122/70
--- NOTE | 2017-01-14 14:49 | PDOC DISCHARGE SUMMARY ---
General - Admit/Disc Date/PCP Admission Date/Primary Care Provider: 12/25/16 19:47 - Discharge Diagnosis (1) Hyponatremia Is this a current diagnosis for this admission?: Yes (2) Hypokalemia Is this a current diagnosis for this admission?: Yes (3) Hypomagnesemia Is this a current diagnosis for this admission?: Yes (4) Rhabdomyolysis Is this a current diagnosis for this admission?: Yes (5) Urinary tract infection Is this a current diagnosis for this admission?: Yes (6) Falls Is this a current diagnosis for this admission?: Yes (7) Diabetes mellitus Is this a current diagnosis for this admission?: Yes - Additional Information Resuscitation Status: Full Code Home Medications: Ascorbic Acid [Vitamin C] 1,000 mg PO DAILY 12/26/16 Aspirin [Aspirin EC] 81 mg PO DAILY 12/26/16 Cholecalciferol (Vitamin D3) [Vitamin D3 2000 unit Tablet] 2,000 unit PO DAILY 12/26/16 Clonidine HCl 0.1 mg PO TID 12/26/16 Cranberry Fruit Extract [Cranberry] 300 mg PO TID 12/26/16 Cyanocobalamin (Vitamin B-12) [B-12] 1,000 mcg PO DAILY 12/26/16 Escitalopram Oxalate [Lexapro 10 mg Tablet] 10 mg PO DAILY 12/26/16 Gluc/Chondr-MSM 7/C/Melquiades/Volga [Eql Glucosam-Chondro Complx Tb] 1 tab PO DAILY 12/26/16 Metformin HCl [Glucophage] 1,000 mg PO BID 12/26/16 Towanda-3 Fatty Acids/Fish Oil [Fish Oil 1,000 mg Capsule] 1 cap PO Q8 12/26/16 Omeprazole 20 mg DAILY 12/26/16 Pregabalin [Lyrica 100 mg Capsule] 100 mg PO BID 12/26/16 Ramipril [Altace 10 mg Capsule] 10 mg PO BID 12/26/16 Rosuvastatin Calcium [Crestor 10 mg Tablet] 10 mg PO QHS 12/26/16 Verapamil HCl 80 mg PO TID 12/26/16 Vitamin E 400 unit PO DAILY 12/26/16 Zinc Gluconate [Zinc] 50 mg PO DAILY 12/26/16 Ibuprofen 800 mg PO Q8HP PRN #21 tablet 01/14/17 Insulin Glargine,Hum.rec.anlog [Lantus Insulin 100 Unit/mL] 25 unit SUBCUT QAM # 1 insuln.pen 01/14/17 Insulin Glargine,Hum.rec.anlog [Lantus Insulin 100 Unit/mL] 30 unit SUBCUT QPM insuln.pen 01/14/17 Lidocaine [Lidoderm 5% (700 mg) Transdermal Patch] 3 patch TP QPM #7 adh..patch 01/14/17 Loratadine [Claritin 10 mg Tablet] 10 mg PO DAILY tablet 01/14/17 Nystatin [Mycostatin Topical Powder 15 gm] 1 applic TP DAILY #1 bottle 01/14/17 Potassium Chloride [Klor-Con 10 Meq Tablet.sa] 10 meq PO DAILY #14 tablet.sa History of Present Illness History of Present Illness: JYOTHI SUTHERLAND is a 66 year old white female with past medical history significant for diabetes who presented to the service with hypernatremia. Please see the details of her admission below as outlined by the admitting physician. Admission Date/PCP: 12/25/16 20:04 Patient complains of: Nausea and vomiting History of Present Illness: JYOTHI SUTHERLAND is a 66 year old female with a past medical history of diabetes and Charcot foot, hypertension and morbid obesity. Patient been her usual state of health until 3 days ago noted nausea and vomiting of gastric content, polyuria and polydipsia. Patient sought evaluation in urgent care and was noted to have ketones in the urine and is referred to the emergency room for evaluation. Where she is found to have profound hyponatremia and a urinary tract infection. She started on empiric antibiotics, IV fluids and referred to the hospitalist for admission. Patient denies chest pain or shortness of breath she admits to constant thirst and is driven to drink water all day long according to family members. Patient denies uncontrolled hyperglycemia or recent change in medications. Hospital Course Hospital Course: Patient was admitted to the hospital and was found to have a sodium initially of 118.7. She had confusion. She also had a low potassium of 3.3 and magnesium of 1.5. Her hyponatremia was felt to be due to polydipsia. The patient was fluid restricted and given normal saline solution. She was also diagnosed initially with a urinary tract infection which was present on admission. Cultures came back E. coli resistant to Bactrim only. The patient was treated with 7 days of Rocephin. She was also found to have very mild rhabdomyolysis which quickly resolved with hydration. Electrolytes were replaced and the patient was looking quite good 3 days into her admission. The patient's confusion resolved and she returned to baseline. Once her sodium was at 125 she was free of confusion and I felt that the patient could be safely discharged home from that point. Again this was 3 days into her admission. However, her family wanted her placed in a group home facility. At that time it was reasonable to pursue placement. The patient had not yet been out of bed and had a history of multiple falls. Physical therapy worked with the patient and recommended placement in a group home facility as well. The patient continued to remain here and I went off service. When I assumed care of the patient again 10 days later, the patient was still here waiting on placement. Apparently there have been multiple issues about the patient being accepted to [facility] and the family declining that bed offer in hopes of receiving a better bed offered elsewhere. Unfortunately because the patient is out of state and has as stated [facility] approval for placement into a group home facility was not possible. In addition to this, the patient actually improved during the 10 days that I was off service. She was able to ambulate 200+ feet with physical therapy and a rolling walker. In my opinion the patient no longer needed group home facility. Nevertheless, the patient's family insisted. Therefore, we pursued placement. Unfortunately the patient was denied by [facility] and by [facility] for placement. Discharge home with home health was revisited in the family agreed to take her home. It was recommended that the patient's pursue establishment with a primary care physician either at [facility], [facility] or [facility]. Prescriptions were provided for the patient's various comorbid conditions such as Lantus for her diabetes and naproxen for her arthritis. The patient also was noted to have some urinary retention at day 3 or 4 in her hospital stay. It was brought to light that she has had these problems prior to admission. Bladder scans revealed less than 200 cc of urine remaining in the bladder at this point. Therefore, reinsertion of Díaz catheter was not pursued. The patient was advised to follow-up with urology as an outpatient. Her acute renal failure completely resolved with hydration while she was here patient was felt to be fit for discharge. Physical Exam Vital Signs: Temp Pulse Resp BP Pulse Ox 97.6 F 65 16 124/67 93 01/14/17 12:00 01/14/17 12:11 01/14/17 12:11 01/14/17 12:00 01/14/17 12:11 Intake & Output 01/13/17 01/14/17 01/15/17 06:59 06:59 06:59 Intake Total 1050 979 Output Total 775 1175 Balance 275 -196 Weight 111.2 kg 113.6 kg Results Laboratory Results: 01/09/17 03:53 01/11/17 05:03 12/25/16 12/25/16 12/26/16 20:22 20:22 00:55 Creatine Kinase 2380 H 2690 H CK-MB (CK-2) 21.00 H Troponin I < 0.012 NT-Pro-B Natriuret Pep 12/26/16 12/26/16 12/26/16 00:55 00:55 00:55 Creatine Kinase Cancelled CK-MB (CK-2) 18.90 H Troponin I < 0.012 NT-Pro-B Natriuret Pep 197 12/26/16 12/26/16 12/27/16 07:56 07:56 07:30 Creatine Kinase 1528 H 492 H CK-MB (CK-2) 12.70 H Troponin I < 0.012 NT-Pro-B Natriuret Pep 01/03/17 04:47 Creatine Kinase 43 CK-MB (CK-2) Troponin I NT-Pro-B Natriuret Pep Impressions: Chest X-Ray 12/25/16 19:01 IMPRESSION: NO ACUTE RADIOGRAPHIC FINDING IN THE CHEST. Hip/Pelvis X-Ray 12/27/16 00:00 IMPRESSION: No acute fracture identified of the right hip Knee X-Ray 12/29/16 00:00 IMPRESSION: CHRONIC DEGENERATIVE CHANGES DESCRIBED. NO ACUTE FINDINGS. Qualifiers PATEINT BEING DISCHARGED WITH ANY OF THE FOLLOWING DIAGNOSIS?: No Plan Time Spent: Greater than 30 Minutes
== END 2017-01-14 15:50 | disposition home health service (06) | DRG 641 ==
LOC: ER 15:20 → 3W 19:47 → UNDOADMIN 20:04 → EH 20:04 → 3W 22:02 → EH 22:02 → 4N 12-30 16:25
PROVIDERS: ADMIT Internal Medicine; ATTEND Internal Medicine
DX: E87.1 Hypo-osmolality and hyponatremia (principal); M62.82 Rhabdomyolysis; N30.01 Acute cystitis with hematuria; E87.6 Hypokalemia; E83.42 Hypomagnesemia; B37.3 Candidiasis of vulva and vagina; E11.610 Type 2 diabetes mellitus with diabetic neuropathic arthropathy; I10 Essential (primary) hypertension; F32.9 Major depressive disorder, single episode, unspecified; E66.01 Morbid (severe) obesity due to excess calories; Z68.39 Body mass index [BMI] 39.0-39.9, adult; Z79.84 Long term (current) use of oral hypoglycemic drugs; Z79.4 Long term (current) use of insulin; Z79.82 Long term (current) use of aspirin; Z79.899 Other long term (current) drug therapy; Z90.49 Acquired absence of other specified parts of digestive tract; Z90.710 Acquired absence of both cervix and uterus; Z88.8 Allergy status to other drugs, medicaments and biological substances
CPT/HCPCS: 36415; 71010; 80048; 80053; 81001; 82550; 82553; 82803; 82962; 83036; 83690; 83735; 83880; 83930; 83935; 84300; 84443; 84484; 85025; 85027; 87070; 87086; 87088; 87186; 93005; 93010; 94640; 96361; 96365; 96375; 99285; G8978-GP; G8979-GP; J0696; J1644; J1815; J1940; J2405; J3475; J3480; J3490; J7030; J7620; S0028

== ENCOUNTER → 2017-02-14 | Outpatient (CLI) | payer MEDICARE ==
--- NOTE | 2017-02-15 07:31 | XCELERA REPORT ---
[address] [address] Lower Extremity Arterial Evaluation Name: JYOTHI SUTHERLAND Age: 66 yrs Gender: Female : 1950 Patient Status: Outpatient Patient Location: Study Date: 02/14/2017 02:52 PM Procedure: A color flow and duplex scan of the lower extremity arteries was performed bilaterally with velocity and waveform anaylsis. Reason For Study: ULCER LEFT FOOT Ordering Physician: ASHLYN CORRAL Performed By: Mouna Freeman Measurements and Calculations Right Left CAGE SUPERVISOR PSV 138.3 150.2 cm/sec Prox PFA PSV -177.8 -87.7 cm/sec Prox SFA PSV 115.7 -127.1 cm/sec Mid SFA PSV -94.3 -115.9 cm/sec Dist SFA PSV -79.9 -88.8 cm/sec Prox Pop A PSV 58.9 66.0 cm/sec Dist NIC PSV 137.6 104.6 cm/sec Dist TIRE CARE MANAGER PSV 79.9 94.3 cm/sec Graham Pedis PSV 124.3 39.7 cm/sec Right Side Arterial Evaluation Normal velocity and triphasic waveforms noted from the Common Femoral artery to the infregeniculate vessels. 0 % stenosis . Ankle Brachial index is 1.2. Left Side Arterial Evaluation Normal velocity and triphasic waveforms noted from the Common Femoral artery to the infregeniculate vessels. 0 % stenosis . Ankle Brachial index is 1.2. Interpretation Summary No hemodynamically significant lesions in the bilateral lower extremities, on duplex imaging, at rest. : ASHLYN CORRAL > Thomas Johnson
== END ==
LOC: SP 14:42
PROVIDERS: ATTEND Preventive Medicine Undersea and Hyperbaric Medicine
DX: L97.522 Non-pressure chronic ulcer of other part of left foot with fat layer exposed (principal)
CPT/HCPCS: 93925

== ENCOUNTER → 2017-02-23 | Outpatient (CLI) | payer MEDICARE ==
--- NOTE | 2017-02-23 12:39 | RADIOLOGY REPORT (SQ) ---
EXAM DESCRIPTION: FOOT LEFT COMPLETE COMPLETED DATE/TIME: 02/23/2017 12:12 pm REASON FOR STUDY: NON-PRS CHRONIC ULCER OTH PRT LEFT FOOT W FAT LAYER EXPOSED COMPARISON: None. NUMBER OF VIEWS: Three views left foot. LIMITATIONS: Osteopenia. FINDINGS: Diffuse osteopenia. Postoperative changes with at least 1 screw through the great toe and multiple screws and plates along the 1st 3 tarsometatarsal articulations. This includes a broken pr oximal screw through the cuneiforms. Chronic appearing loss of several digits distally with attenuat ed appearance of the remaining distal phalanges. Angular deformities in the 2nd, 3rd, 4th toes parti cularly, likely chronic. There is a marker placed by the technologist indicating the region of concern along the medial aspect of the foot. This roughly overlies the navicular and talar head. No bone resorption focally. No f racture. No subluxation or dislocation here. Prominent calcaneal bone spur. Probable ankle joint e ffusion. OTHER: No other significant finding. IMPRESSION: As above. TECHNICAL DOCUMENTATION: JOB ID: [id number]
== END ==
LOC: OD 11:39
PROVIDERS: ATTEND Preventive Medicine Undersea and Hyperbaric Medicine
DX: L97.522 Non-pressure chronic ulcer of other part of left foot with fat layer exposed (principal)
CPT/HCPCS: 36415; 85652; 86140